=== PATIENT | male | born 1980 | race Caucasian/White ===

== ENCOUNTER 2021-07-03 23:50 | Inpatient (IN) | payer MEDICAID ==
[~2021-07-03] VITALS: Ht 180.3 cm; Wt 103.0 kg
[2021-07-04 00:49] LABS: BASOPHILS % (AUTO) 0.6 % (0.0-2.0); EOSINOPHILS % (AUTO) 1.9 % (1.0-6.0); HEMOGLOBIN 14.2 g/dL (13.5-17.5); LYMPHOCYTES % (AUTO) 28.1 % (22.0-44.0); MEAN CORPUSCULAR HEMOGLOBIN 29.5 pg (26.0-34.0); MEAN CORPUSCULAR HGB CONC 34.5 G/dL (31.0-37.0); MEAN CORPUSCULAR VOLUME 86 fL (80-100); MONOCYTES # (AUTO) 0.6 K/uL (0.1-1.0); MONOCYTES % (AUTO) 8.5 % (2.0-9.0); NEUTROPHILS # (AUTO) 4.3 K/uL (1.8-7.7); NEUTROPHILS % (AUTO) 60.9 % (40.0-70.0); PLATELET COUNT (AUTO) 211 K/uL (150-450); RED BLOOD CELL COUNT(AUTO) 4.79 MIL/uL (4.50-5.90); RED CELL DISTRIBUTION WIDTH 13.6 % (11.5-14.5)
[2021-07-04 00:57] LABS: ANION GAP 7 mmol/L (8-16); CALCIUM, TOTAL 8.7 mg/dL (8.8-10.5); CARBON DIOXIDE 31 mmol/L (22-29); CHLORIDE 104 mmol/L (98-107); CREATININE 1.09 mg/dL (0.60-1.30); GLOMERULAR FILTR. RATE CALC > 60 mL/min (>60); GLUCOSE,RANDOM 115 mg/dL (70-110); POTASSIUM 3.4 mmol/L (3.5-5.1); SODIUM SERUM 142 mmol/L (136-145); UREA NITROGEN, BLOOD 20 mg/dL (7-18)
[2021-07-04 01:04] LABS: ALANINE AMINOTRANSFERASE 60 U/L (12-78); ALBUMIN 3.6 g/dL (3.4-5.0); ALKALINE PHOSPHATASE 62 U/L (46-116); ASPARTATE AMINOTRANSFERASE 47 U/L (15-37); BILIRUBIN,TOTAL 0.3 mg/dL (0.1-1.0); TOTAL PROTEIN, SERUM 6.7 g/dL (6.4-8.2)
[2021-07-04 01:10] LABS: COVID AG,FIA SOURCE NASOPHARYNGEAL
[2021-07-04 01:19] LABS: AMPHET/METH SCREEN,URINE NEGATIVE (NEGATIVE); BARBITURATE SCREEN, URINE NEGATIVE (NEGATIVE); BENZODIAZEPINES SCREEN,URINE POSITIVE (NEGATIVE); CANNABINOID SCREEN,URINE POSITIVE (NEGATIVE); COCAINE SCREEN,URINE NEGATIVE (NEGATIVE); METHADONE SCREEN, URINE NEGATIVE (NEGATIVE); OPIATE SCREEN,URINE NEGATIVE (NEGATIVE); PHENCYCLIDINE SCREEN,URINE NEGATIVE (NEGATIVE)
[2021-07-04] MEDS ORDERED: ONDANSETRON HCL 4 MG/2 ML VIAL PO ONE (03:00)
[2021-07-04] MEDS ORDERED: ONDANSETRON HCL 4 MG TABLET PO ONE (03:00)
[2021-07-04] MEDS ORDERED: HALOPERIDOL 5 MG TABLET PO PRN (06:15)
[2021-07-04] MEDS ORDERED: LORazepam 2 MG TABLET PO PRN (06:15)
[2021-07-04] MEDS ORDERED: ZOLPIDEM TARTRATE 10 MG TABLET PO PRN (06:15)
[2021-07-04] MEDS ORDERED: NICOTINE 14 MG/24 HOUR PATCH TD PRN (06:45)
[2021-07-04] MEDS ORDERED: MAGNESIUM HYDROXIDE SUSPENSION 30 ML UDCUP PO PRN (06:45)
[2021-07-04] MEDS ORDERED: PETROLATUM,WHITE 28 GM JELLY TP PRN (06:45)
[2021-07-04] MEDS ORDERED: LOPERAMIDE HCL 2 MG CAPSULE PO PRN (06:45)
[2021-07-04] MEDS ORDERED: DOCUSATE SODIUM 100 MG CAPSULE PO PRN (06:45)
[2021-07-04] MEDS ORDERED: ALBUTEROL SULFATE HFA 90 MCG/PUFF 8 GM INHALER IH PRN (06:45)
[2021-07-04] MEDS ORDERED: IBUPROFEN 400 MG TABLET PO PRN (06:45)
[2021-07-04] MEDS ORDERED: MAG HYDROX/AL HYDROX/SIMETH ES 30 ML SUSPENSION UDCUP PO PRN (06:45)
[2021-07-04] MEDS ORDERED: GuaiFENesin/D-METHORPHAN [SUGAR-FREE] 200-20MG/10 ML SYRUP UDCUP PO PRN (06:45)
[2021-07-04] MEDS ORDERED: ACETAMINOPHEN 325 MG TABLET PO PRN (06:45)
[2021-07-04] MEDS ORDERED: CloNIDine HCL 0.1 MG TABLET PO PRN (06:45)
[2021-07-04 06:51] LABS: APPEARANCE,URINE CLEAR (CLEAR); BILIRUBIN,URINE NEGATIVE (NEGATIVE); GLUCOSE, URINE (UA) NEGATIVE (NEGATIVE); KETONES,URINE NEGATIVE (NEGATIVE); LEUKOCYTE ESTERASE ,URINE NEGATIVE (NEGATIVE); NITRATE,URINE NEGATIVE (NEGATIVE); OCCULT BLOOD,URINE NEGATIVE (NEGATIVE); PROTEIN,URINE NEGATIVE (NEGATIVE); UROBILINOGEN,URINE 0.2 mg/dL (<=1.0)
[2021-07-04] MEDS: ONDANSETRON HCL 4 MG TABLET PO PRN ×2 (12:18→20:55)
[2021-07-04 21:13] VITALS: BP 140/89
[2021-07-04] MEDS ORDERED: HALOPERIDOL LACTATE 5 MG/ML VIAL IM ONE (22:00)
[2021-07-04] MEDS ORDERED: TraZODone HCL 100 MG TABLET PO PRN (22:00)
[2021-07-04] MEDS ORDERED: DiphenhydrAMINE HCL 50 MG/ML VIAL IM ONE (22:00)
[2021-07-04] MEDS ORDERED: HydrOXYzine PAMOATE 50 MG CAPSULE PO PRN (22:00)
== END 2021-07-05 12:30 | disposition home or self-care (01) | DRG 751 ==
LOC: EMS 23:51 → 3EI 07-04 06:11
PROVIDERS: ADMIT Psychiatry & Neurology Child & Adolescent Psychiatry; ATTEND Psychiatry & Neurology Child & Adolescent Psychiatry
DX: F33.2 Major depressive disorder, recurrent severe without psychotic features (principal); F20.9 Schizophrenia, unspecified; Z20.822 Contact with and (suspected) exposure to COVID-19; Z91.19 Patient's noncompliance with other medical treatment and regimen
CPT/HCPCS: 80053; 81003; 85025; G0480; Q0162

== ENCOUNTER 2021-07-16 10:37 | Inpatient (IN) | payer MEDICAID, OTHER ==
[~2021-07-16] VITALS: Ht 180.3 cm; Wt 99.3 kg
[2021-07-16 11:30] LABS: BASOPHILS % (AUTO) 0.3 % (0.0-2.0); EOSINOPHILS % (AUTO) 2.1 % (1.0-6.0); HEMATOCRIT 43.4 % (41-53); HEMOGLOBIN 14.6 g/dL (13.5-17.5); LYMPHOCYTES # (AUTO) 0.9 K/uL (1.0-4.8); MEAN CORPUSCULAR HGB CONC 33.8 G/dL (31.0-37.0); MEAN CORPUSCULAR VOLUME 86 fL (80-100); MONOCYTES # (AUTO) 0.4 K/uL (0.1-1.0); NEUTROPHILS # (AUTO) 4.7 K/uL (1.8-7.7); NEUTROPHILS % (AUTO) 76.6 % (40.0-70.0); PLATELET COUNT (AUTO) 300 K/uL (150-450); RED BLOOD CELL COUNT(AUTO) 5.05 MIL/uL (4.50-5.90); RED CELL DISTRIBUTION WIDTH 13.4 % (11.5-14.5)
[2021-07-16 11:48] LABS: ANION GAP 6 mmol/L (8-16); CALCIUM, TOTAL 8.8 mg/dL (8.8-10.5); CARBON DIOXIDE 30 mmol/L (22-29); CHLORIDE 104 mmol/L (98-107); CREATININE 0.89 mg/dL (0.60-1.30); GLOMERULAR FILTR. RATE CALC > 60 mL/min (>60); GLUCOSE,RANDOM 132 mg/dL (70-110); POTASSIUM 3.9 mmol/L (3.5-5.1); SODIUM SERUM 140 mmol/L (136-145); UREA NITROGEN, BLOOD 14 mg/dL (7-18)
[2021-07-16 11:52] LABS: ALANINE AMINOTRANSFERASE 60 U/L (12-78); ALBUMIN 3.3 g/dL (3.4-5.0); ALKALINE PHOSPHATASE 68 U/L (46-116); ASPARTATE AMINOTRANSFERASE 61 U/L (15-37); BILIRUBIN,TOTAL 0.3 mg/dL (0.1-1.0); TOTAL PROTEIN, SERUM 6.9 g/dL (6.4-8.2)
[2021-07-16 14:15] LABS: AMPHET/METH SCREEN,URINE NEGATIVE (NEGATIVE); BARBITURATE SCREEN, URINE NEGATIVE (NEGATIVE); BENZODIAZEPINES SCREEN,URINE POSITIVE (NEGATIVE); CANNABINOID SCREEN,URINE POSITIVE (NEGATIVE); COCAINE SCREEN,URINE NEGATIVE (NEGATIVE); METHADONE SCREEN, URINE NEGATIVE (NEGATIVE); OPIATE SCREEN,URINE NEGATIVE (NEGATIVE)
[2021-07-16 14:19] LABS: PHENCYCLIDINE SCREEN,URINE NEGATIVE (NEGATIVE)
[2021-07-16 15:25] LABS: COVID AG,FIA SOURCE NASOPHARYNGEAL
[2021-07-16] MEDS ORDERED: ONDANSETRON HCL 4 MG TABLET PO ONE (19:30)
[2021-07-16] MEDS: LORazepam 2 MG TABLET PO PRN (20:31)
[2021-07-16] MEDS: HALOPERIDOL 5 MG TABLET PO PRN (20:39)
[2021-07-17] MEDS: LORazepam 2 MG TABLET PO PRN ×4 (06:08→20:13)
[2021-07-17] MEDS: HALOPERIDOL 5 MG TABLET PO PRN ×3 (06:08→15:55)
[2021-07-17] MEDS ORDERED: ACETAMINOPHEN 325 MG TABLET PO PRN (10:30)
[2021-07-17] MEDS ORDERED: ONDANSETRON HCL 4 MG TABLET PO PRN (10:30)
[2021-07-17] MEDS ORDERED: NICOTINE 14 MG/24 HOUR PATCH TD PRN (10:30)
[2021-07-17] MEDS ORDERED: MAG HYDROX/AL HYDROX/SIMETH ES 30 ML SUSPENSION UDCUP PO PRN (10:30)
[2021-07-17] MEDS ORDERED: CloNIDine HCL 0.1 MG TABLET PO PRN (10:30)
[2021-07-17] MEDS ORDERED: GuaiFENesin/D-METHORPHAN [SUGAR-FREE] 200-20MG/10 ML SYRUP UDCUP PO PRN (10:30)
[2021-07-17] MEDS ORDERED: DOCUSATE SODIUM 100 MG CAPSULE PO PRN (10:30)
[2021-07-17] MEDS ORDERED: MAGNESIUM HYDROXIDE SUSPENSION 30 ML UDCUP PO PRN (10:30)
[2021-07-17] MEDS ORDERED: PETROLATUM,WHITE 28 GM JELLY TP PRN (10:30)
[2021-07-17] MEDS ORDERED: ALBUTEROL SULFATE HFA 90 MCG/PUFF 8 GM INHALER IH PRN (10:30)
[2021-07-17] MEDS: IBUPROFEN 400 MG TABLET PO PRN (15:55)
[2021-07-17] MEDS: LOPERAMIDE HCL 2 MG CAPSULE PO PRN (15:55)
[2021-07-17] MEDS: ZOLPIDEM TARTRATE 10 MG TABLET PO PRN (20:14)
[2021-07-17] MEDS: NICOTINE POLACRILEX 2 MG LOZENGE PO PRN (22:37)
[2021-07-18] MEDS: LORazepam 2 MG TABLET PO PRN ×5 (00:09→21:26)
[2021-07-18] MEDS: HALOPERIDOL 5 MG TABLET PO PRN ×5 (00:09→21:26)
[2021-07-18] MEDS: LOPERAMIDE HCL 2 MG CAPSULE PO PRN ×2 (04:55→08:39)
[2021-07-18] MEDS: IBUPROFEN 400 MG TABLET PO PRN (04:55)
[2021-07-18] MEDS: NICOTINE POLACRILEX 2 MG LOZENGE PO PRN (08:57)
[2021-07-18 11:34] VITALS: BP 145/95
[2021-07-18] MEDS ORDERED: INFLUENZA VIRUS VACCINE QVS 2021-22 (6MO+)/PF 60 MCG/0.5 ML SYRINGE IM. ONE (13:15)
[2021-07-18 16:13] VITALS: BP 135/86
[2021-07-18] MEDS: ZOLPIDEM TARTRATE 10 MG TABLET PO PRN (20:42)
[2021-07-19 00:09] VITALS: BP 139/85
[2021-07-19] MEDS: NICOTINE POLACRILEX 2 MG LOZENGE PO PRN ×3 (01:44→21:04)
[2021-07-19 07:07] LABS: HEMOGLOBIN A1C 5.8 % (3.8-5.6)
[2021-07-19 07:23] LABS: FREE T4 (FREE THYROXINE) 0.82 ng/dL (0.76-1.46); THYROID STIMULATING HORMONE 1.62 uIU/mL (0.36-3.74)
[2021-07-19 08:12] VITALS: BP 126/85
[2021-07-19] MEDS: HALOPERIDOL 5 MG TABLET PO PRN (09:28)
[2021-07-19] MEDS: LORazepam 2 MG TABLET PO PRN ×3 (09:28→21:41)
[2021-07-19] MEDS ORDERED: LOPERAMIDE HCL 2 MG CAPSULE PO PRN (12:45)
[2021-07-19] MEDS: SERTRALINE HCL 50 MG TABLET PO SCH (13:04)
[2021-07-19] MEDS: ARIPiprazole 5 MG TABLET PO SCH (13:04)
[2021-07-19 17:45] VITALS: BP 131/90
[2021-07-19] MEDS: ZOLPIDEM TARTRATE 10 MG TABLET PO PRN (21:04)
[2021-07-19] MEDS ORDERED: MAG HYDROX/AL HYDROX/SIMETH ES 30 ML SUSPENSION UDCUP PO PRN (22:15)
[2021-07-19] MEDS ORDERED: HydrOXYzine PAMOATE 50 MG CAPSULE PO PRN (22:15)
[2021-07-19] MEDS ORDERED: CloNIDine HCL 0.1 MG TABLET PO PRN (22:15)
[2021-07-19] MEDS ORDERED: IBUPROFEN 600 MG TABLET PO PRN (22:15)
[2021-07-19 22:25] VITALS: BP 132/90
[2021-07-20] VITALS (13 sets, daily range): BP systolic 111–175; BP diastolic 66–118
[2021-07-20] MEDS: CloNIDine HCL 0.1 MG TABLET PO SCH ×4 (06:15→21:57)
[2021-07-20] MEDS: SERTRALINE HCL 50 MG TABLET PO SCH (09:10)
[2021-07-20] MEDS: ARIPiprazole 5 MG TABLET PO SCH (09:10)
[2021-07-20] MEDS: NICOTINE POLACRILEX 2 MG LOZENGE PO PRN ×2 (11:04→19:26)
[2021-07-20] MEDS: LORazepam 2 MG TABLET PO PRN ×2 (11:04→18:53)
[2021-07-21 00:19] VITALS: BP 131/78
[2021-07-21 01:15] VITALS: BP 131/79
[2021-07-21] MEDS: LORazepam 2 MG TABLET PO PRN ×2 (04:39→08:40)
[2021-07-21] MEDS: NICOTINE POLACRILEX 2 MG LOZENGE PO PRN (04:39)
[2021-07-21] MEDS: CloNIDine HCL 0.1 MG TABLET PO SCH (06:22)
[2021-07-21] MEDS ORDERED: CLOBETASOL 0.05% 25 ML SOLUTION TP PRN (08:15)
[2021-07-21 08:25] VITALS: BP 125/74
[2021-07-21] MEDS: SERTRALINE HCL 50 MG TABLET PO SCH (08:53)
[2021-07-21] MEDS: ARIPiprazole 5 MG TABLET PO SCH (08:53)
[2021-07-21] MEDS ORDERED: LORazepam 1 MG TABLET PO PRN (11:00)
== END 2021-07-21 11:10 | disposition left against medical advice (07) | DRG 754 ==
LOC: EMS 10:41 → B2S 07-18 09:09
PROVIDERS: ADMIT Psychiatry & Neurology Child & Adolescent Psychiatry; ATTEND Psychiatry & Neurology Child & Adolescent Psychiatry
DX: F32.9 Major depressive disorder, single episode, unspecified (principal); R45.851 Suicidal ideations; Z91.14 Patient's other noncompliance with medication regimen; E66.3 Overweight; F11.10 Opioid abuse, uncomplicated; Z20.822 Contact with and (suspected) exposure to COVID-19; F20.9 Schizophrenia, unspecified; G47.00 Insomnia, unspecified; Z59.00 Homelessness unspecified; F41.9 Anxiety disorder, unspecified; Z53.29 Procedure and treatment not carried out because of patient's decision for other reasons; F17.210 Nicotine dependence, cigarettes, uncomplicated; R73.9 Hyperglycemia, unspecified; F12.10 Cannabis abuse, uncomplicated; F13.10 Sedative, hypnotic or anxiolytic abuse, uncomplicated; Z91.51 Personal history of suicidal behavior; Z68.30 Body mass index [BMI] 30.0-30.9, adult; Z28.21 Immunization not carried out because of patient refusal
CPT/HCPCS: 80053; 83036; 84439; 84443; 85025; 99285; G0480; Q0162; Q9967

== ENCOUNTER 2021-07-28 13:37 | Emergency (ER) | payer MEDICAID, OTHER ==
[~2021-07-28] VITALS: Ht 180.3 cm; Wt 100.0 kg
[2021-07-28 14:24] VITALS: BP 123/78
== END 2021-07-28 15:44 | disposition home or self-care (01) ==
LOC: EMS 13:37
DX: F19.10 Other psychoactive substance abuse, uncomplicated (principal); F12.90 Cannabis use, unspecified, uncomplicated
CPT/HCPCS: 99285

== ENCOUNTER 2021-08-01 07:27 | Inpatient (IN) | payer MEDICAID, OTHER ==
[~2021-08-01] VITALS: Ht 180.3 cm; Wt 100.0 kg
[2021-08-01] MEDS ORDERED: ONDANSETRON HCL 4 MG TABLET PO ONE (08:00)
[2021-08-01 08:06] LABS: BASOPHILS % (AUTO) 0.4 % (0.0-2.0); EOSINOPHILS % (AUTO) 1.9 % (1.0-6.0); HEMATOCRIT 46.9 % (41-53); HEMOGLOBIN 16.1 g/dL (13.5-17.5); LYMPHOCYTES # (AUTO) 1.1 K/uL (1.0-4.8); LYMPHOCYTES % (AUTO) 12.9 % (22.0-44.0); MEAN CORPUSCULAR HEMOGLOBIN 29.5 pg (26.0-34.0); MEAN CORPUSCULAR HGB CONC 34.3 G/dL (31.0-37.0); MEAN CORPUSCULAR VOLUME 86 fL (80-100); MONOCYTES # (AUTO) 0.5 K/uL (0.1-1.0); MONOCYTES % (AUTO) 5.6 % (2.0-9.0); NEUTROPHILS # (AUTO) 6.9 K/uL (1.8-7.7); NEUTROPHILS % (AUTO) 79.2 % (40.0-70.0); PLATELET COUNT (AUTO) 250 K/uL (150-450); RED BLOOD CELL COUNT(AUTO) 5.45 MIL/uL (4.50-5.90); RED CELL DISTRIBUTION WIDTH 13.5 % (11.5-14.5)
[2021-08-01 08:18] LABS: COVID AG,FIA SOURCE NASOPHARYNGEAL
[2021-08-01 08:30] LABS: AMPHET/METH SCREEN,URINE NEGATIVE (NEGATIVE); BARBITURATE SCREEN, URINE NEGATIVE (NEGATIVE); BENZODIAZEPINES SCREEN,URINE POSITIVE (NEGATIVE); CANNABINOID SCREEN,URINE POSITIVE (NEGATIVE); COCAINE SCREEN,URINE NEGATIVE (NEGATIVE); METHADONE SCREEN, URINE NEGATIVE (NEGATIVE); OPIATE SCREEN,URINE POSITIVE (NEGATIVE)
[2021-08-01 08:30] LABS: ANION GAP 12 mmol/L (8-16); CALCIUM, TOTAL 8.8 mg/dL (8.8-10.5); CARBON DIOXIDE 23 mmol/L (22-29); CHLORIDE 107 mmol/L (98-107); GLOMERULAR FILTR. RATE CALC > 60 mL/min (>60); GLUCOSE,RANDOM 99 mg/dL (70-110); POTASSIUM 3.7 mmol/L (3.5-5.1); SODIUM SERUM 142 mmol/L (136-145); UREA NITROGEN, BLOOD 11 mg/dL (7-18)
[2021-08-01 08:33] LABS: PHENCYCLIDINE SCREEN,URINE NEGATIVE (NEGATIVE)
[2021-08-01 08:35] LABS: ALANINE AMINOTRANSFERASE 58 U/L (12-78); ALBUMIN 3.9 g/dL (3.4-5.0); ALKALINE PHOSPHATASE 72 U/L (46-116); ASPARTATE AMINOTRANSFERASE 32 U/L (15-37); BILIRUBIN,TOTAL 0.5 mg/dL (0.1-1.0); TOTAL PROTEIN, SERUM 7.9 g/dL (6.4-8.2)
[2021-08-01] MEDS ORDERED: MAG HYDROX/AL HYDROX/SIMETH ES 30 ML SUSPENSION UDCUP PO PRN (09:45)
[2021-08-01] MEDS ORDERED: LORazepam 2 MG TABLET PO PRN (09:45)
[2021-08-01] MEDS ORDERED: MAGNESIUM HYDROXIDE SUSPENSION 30 ML UDCUP PO PRN (09:45)
[2021-08-01] MEDS ORDERED: GuaiFENesin/D-METHORPHAN [SUGAR-FREE] 200-20MG/10 ML SYRUP UDCUP PO PRN (09:45)
[2021-08-01] MEDS: OLANZapine 5 MG RAPDIS TABLET PO PRN ×2 (11:00→15:50)
[2021-08-01] MEDS: HydrOXYzine PAMOATE 50 MG CAPSULE PO PRN ×2 (11:00→15:49)
[2021-08-01] MEDS ORDERED: CYANOCOBALAMIN 1,000 MCG/ML VIAL IM ONE (11:30)
[2021-08-01] MEDS: LOPERAMIDE HCL 2 MG CAPSULE PO PRN ×3 (11:35→21:19)
[2021-08-01] MEDS: ONDANSETRON HCL 4 MG TABLET PO ONE ×2 (13:21→15:45)
[2021-08-01] MEDS: ACETAMINOPHEN 325 MG TABLET PO PRN (15:45)
[2021-08-01] MEDS: THIAMINE 100 MG TABLET PO SCH (18:55)
[2021-08-01] MEDS: OLANZapine 5 MG RAPDIS TABLET PO SCH (21:19)
[2021-08-01] MEDS: ZOLPIDEM TARTRATE 10 MG TABLET PO PRN (21:54)
[2021-08-01] MEDS: GABAPENTIN 300 MG CAPSULE PO PRN (21:54)
[2021-08-01] MEDS: MELATONIN 5 MG TABLET PO SCH (21:59)
[2021-08-02] MEDS: HydrOXYzine PAMOATE 50 MG CAPSULE PO PRN ×2 (00:11→21:17)
[2021-08-02] MEDS ORDERED: HALOPERIDOL 5 MG TABLET PO ONE (02:00)
[2021-08-02] MEDS ORDERED: DiphenhydrAMINE HCL 25 MG CAPSULE PO ONE (02:00)
[2021-08-02] MEDS ORDERED: LORazepam 1 MG TABLET PO ONE (02:00)
[2021-08-02] MEDS: ACETAMINOPHEN 325 MG TABLET PO PRN (06:24)
[2021-08-02 07:37] LABS: HEMOGLOBIN A1C 5.6 % (3.8-5.6)
[2021-08-02 07:44] LABS: CHOL/HDL RATIO 3.9 (4.2-7.3); CHOLESTEROL 156 mg/dL (131-200); FREE T4 (FREE THYROXINE) 0.96 ng/dL (0.76-1.46); HDL CHOLESTEROL 40 mg/dL (40-60); LDL CHOL (CALC.) 103 mg/dL (0-130); THYROID STIMULATING HORMONE 0.75 uIU/mL (0.36-3.74); TRIGLYCERIDES 64 mg/dL (15-150)
[2021-08-02] MEDS ORDERED: PALIPERIDONE PALMITATE 234 MG/1.5 ML SYRINGE IM ONE (09:00)
[2021-08-02] MEDS: MULTIVITAMINS WITH MINERALS, THERAPEUTIC TABLET PO SCH (10:08)
[2021-08-02] MEDS: FLUoxetine HCL 20 MG CAPSULE PO SCH (10:08)
[2021-08-02] MEDS: THIAMINE 100 MG TABLET PO SCH ×2 (10:08→17:26)
[2021-08-02] MEDS: NALTREXONE HCL 50 MG TABLET PO SCH (10:09)
[2021-08-02] MEDS: OMEGA-3/DHA/EPA/FISH OIL 1,000 MG CAPSULE PO SCH (10:09)
[2021-08-02] MEDS: FOLIC ACID 1 MG TABLET PO SCH (10:09)
[2021-08-02] MEDS: OLANZapine 5 MG RAPDIS TABLET PO PRN ×2 (11:05→17:26)
[2021-08-02] MEDS: LOPERAMIDE HCL 2 MG CAPSULE PO PRN (11:06)
[2021-08-02] MEDS: ONDANSETRON HCL 4 MG TABLET PO PRN ×2 (11:22→21:17)
[2021-08-02] MEDS ORDERED: LORazepam 2 MG TABLET PO ONE (12:00)
[2021-08-02 15:00] VITALS: BP 154/94
[2021-08-02 16:00] VITALS: BP 155/90
[2021-08-02] MEDS ORDERED: NICOTINE 21 MG/24 HOUR PATCH TD PRN (18:00)
[2021-08-02] MEDS ORDERED: CloNIDine HCL 0.1 MG TABLET PO SCH (18:00)
[2021-08-02 19:11] VITALS: BP 147/89
[2021-08-02] MEDS ORDERED: CloNIDine HCL 0.1 MG TABLET PO PRN (19:15)
[2021-08-02] MEDS ORDERED: MAG HYDROX/AL HYDROX/SIMETH ES 30 ML SUSPENSION UDCUP PO PRN (19:15)
[2021-08-02] MEDS ORDERED: CloNIDine HCL 0.1 MG TABLET PO ONE (19:15)
[2021-08-02 20:11] VITALS: BP 145/86
[2021-08-02 21:11] VITALS: BP 131/77
[2021-08-02] MEDS: OLANZapine 5 MG RAPDIS TABLET PO SCH (21:16)
[2021-08-02] MEDS: MELATONIN 5 MG TABLET PO SCH (21:16)
[2021-08-02] MEDS: CloNIDine HCL 0.1 MG TABLET PO SCH (21:17)
[2021-08-02 21:18] VITALS: BP 139/88
[2021-08-02] MEDS: IBUPROFEN 600 MG TABLET PO PRN (21:18)
[2021-08-02] MEDS ORDERED: ROPINIRole HCL 1 MG TABLET PO ONE (21:45)
[2021-08-02] MEDS ORDERED: PROPRANOLOL HCL 10 MG TABLET PO ONE (22:00)
[2021-08-02] MEDS: NICOTINE POLACRILEX 2 MG LOZENGE PO PRN (22:09)
[2021-08-03] MEDS: ZOLPIDEM TARTRATE 10 MG TABLET PO PRN (00:41)
[2021-08-03 06:59] VITALS: BP 120/70
[2021-08-03] MEDS: CloNIDine HCL 0.1 MG TABLET PO SCH ×5 (06:59→20:53)
[2021-08-03] MEDS: FOLIC ACID 1 MG TABLET PO SCH (08:05)
[2021-08-03] MEDS: OMEGA-3/DHA/EPA/FISH OIL 1,000 MG CAPSULE PO SCH (08:05)
[2021-08-03] MEDS: MULTIVITAMINS WITH MINERALS, THERAPEUTIC TABLET PO SCH (08:05)
[2021-08-03] MEDS: NALTREXONE HCL 50 MG TABLET PO SCH (08:05)
[2021-08-03] MEDS: FLUoxetine HCL 20 MG CAPSULE PO SCH (08:05)
[2021-08-03] MEDS: PROPRANOLOL HCL 10 MG TABLET PO SCH ×5 (08:05→21:00)
[2021-08-03] MEDS: THIAMINE 100 MG TABLET PO SCH ×2 (08:05→17:13)
[2021-08-03] MEDS: NICOTINE POLACRILEX 2 MG LOZENGE PO PRN ×2 (09:15→14:34)
[2021-08-03] MEDS: GABAPENTIN 300 MG CAPSULE PO PRN ×2 (09:15→14:56)
[2021-08-03] MEDS: LOPERAMIDE HCL 2 MG CAPSULE PO PRN (09:15)
[2021-08-03] MEDS: HydrOXYzine PAMOATE 50 MG CAPSULE PO PRN ×2 (09:19→14:56)
[2021-08-03] MEDS: IBUPROFEN 600 MG TABLET PO PRN (14:57)
[2021-08-03] MEDS: OLANZapine 5 MG RAPDIS TABLET PO PRN ×2 (14:57→20:54)
[2021-08-03 16:59] VITALS: BP 149/78
[2021-08-03] MEDS: ROPINIRole HCL 1 MG TABLET PO SCH (17:13)
[2021-08-03] MEDS: MELATONIN 5 MG TABLET PO SCH (20:53)
[2021-08-04] VITALS (7 sets, daily range): BP systolic 104–137; BP diastolic 68–90
[2021-08-04] MEDS: OLANZapine 5 MG RAPDIS TABLET PO PRN (04:26)
[2021-08-04] MEDS: GABAPENTIN 300 MG CAPSULE PO PRN (04:26)
[2021-08-04] MEDS: ACETAMINOPHEN 325 MG TABLET PO PRN (04:26)
[2021-08-04] MEDS: CloNIDine HCL 0.1 MG TABLET PO SCH ×4 (06:53→21:08)
[2021-08-04] MEDS ORDERED: LOPERAMIDE HCL 2 MG CAPSULE PO PRN (09:45)
[2021-08-04] MEDS: OMEGA-3/DHA/EPA/FISH OIL 1,000 MG CAPSULE PO SCH (10:48)
[2021-08-04] MEDS: PROPRANOLOL HCL 10 MG TABLET PO SCH ×4 (10:48→20:19)
[2021-08-04] MEDS: MULTIVITAMINS WITH MINERALS, THERAPEUTIC TABLET PO SCH (10:48)
[2021-08-04] MEDS: NALTREXONE HCL 50 MG TABLET PO SCH (10:48)
[2021-08-04] MEDS: FOLIC ACID 1 MG TABLET PO SCH (10:48)
[2021-08-04] MEDS: THIAMINE 100 MG TABLET PO SCH ×2 (10:48→16:02)
[2021-08-04] MEDS: FLUoxetine HCL 20 MG CAPSULE PO SCH (10:50)
[2021-08-04] MEDS: NICOTINE POLACRILEX 2 MG LOZENGE PO PRN (14:12)
[2021-08-04] MEDS: ONDANSETRON HCL 4 MG TABLET PO PRN (16:24)
[2021-08-04] MEDS: MELATONIN 5 MG TABLET PO SCH (20:19)
[2021-08-04] MEDS: ROPINIRole HCL 1 MG TABLET PO SCH (20:20)
[2021-08-04] MEDS: ZOLPIDEM TARTRATE 10 MG TABLET PO PRN (20:21)
[2021-08-05] MEDS: NICOTINE POLACRILEX 2 MG LOZENGE PO PRN ×3 (04:18→18:43)
[2021-08-05 06:13] VITALS: BP 121/76
[2021-08-05] MEDS: CloNIDine HCL 0.1 MG TABLET PO SCH ×4 (06:13→21:16)
[2021-08-05] MEDS: FOLIC ACID 1 MG TABLET PO SCH (08:01)
[2021-08-05] MEDS: OMEGA-3/DHA/EPA/FISH OIL 1,000 MG CAPSULE PO SCH (08:01)
[2021-08-05] MEDS: MULTIVITAMINS WITH MINERALS, THERAPEUTIC TABLET PO SCH (08:01)
[2021-08-05] MEDS: PROPRANOLOL HCL 10 MG TABLET PO SCH ×4 (08:02→20:10)
[2021-08-05] MEDS: FLUoxetine HCL 20 MG CAPSULE PO SCH (08:02)
[2021-08-05] MEDS: NALTREXONE HCL 50 MG TABLET PO SCH (08:02)
[2021-08-05] MEDS: THIAMINE 100 MG TABLET PO SCH ×2 (08:02→16:12)
[2021-08-05 08:25] VITALS: BP 124/76
[2021-08-05] MEDS: HydrOXYzine PAMOATE 50 MG CAPSULE PO PRN (08:53)
[2021-08-05] MEDS: OLANZapine 5 MG RAPDIS TABLET PO PRN ×2 (08:53→18:42)
[2021-08-05 16:00] VITALS: BP 137/77
[2021-08-05 16:41] VITALS: BP 137/77
[2021-08-05 16:43] VITALS: BP 137/77
[2021-08-05] MEDS: GABAPENTIN 300 MG CAPSULE PO PRN (18:42)
[2021-08-05] MEDS: MELATONIN 5 MG TABLET PO SCH (20:10)
[2021-08-05] MEDS: ROPINIRole HCL 1 MG TABLET PO SCH (20:10)
[2021-08-05] MEDS: ZOLPIDEM TARTRATE 10 MG TABLET PO PRN (21:32)
[2021-08-06 06:00] VITALS: BP 109/69
[2021-08-06] MEDS: CloNIDine HCL 0.1 MG TABLET PO SCH ×4 (06:05→20:24)
[2021-08-06 08:00] VITALS: BP 127/69
[2021-08-06 08:06] LABS: HIV 1-2 SCREEN 4TH GEN W/RFLX Non Reactive (Non Reactive)
[2021-08-06] MEDS: OMEGA-3/DHA/EPA/FISH OIL 1,000 MG CAPSULE PO SCH (08:24)
[2021-08-06] MEDS: FOLIC ACID 1 MG TABLET PO SCH (08:25)
[2021-08-06] MEDS: NALTREXONE HCL 50 MG TABLET PO SCH (08:25)
[2021-08-06] MEDS: FLUoxetine HCL 20 MG CAPSULE PO SCH (08:25)
[2021-08-06] MEDS: PROPRANOLOL HCL 10 MG TABLET PO SCH ×4 (08:25→20:24)
[2021-08-06] MEDS: THIAMINE 100 MG TABLET PO SCH ×2 (08:25→16:38)
[2021-08-06] MEDS: MULTIVITAMINS WITH MINERALS, THERAPEUTIC TABLET PO SCH (08:25)
[2021-08-06] MEDS ORDERED: PALIPERIDONE PALMITATE 156 MG/ML SYRINGE IM ONE (09:00)
[2021-08-06] MEDS: NICOTINE POLACRILEX 2 MG LOZENGE PO PRN ×3 (09:30→19:00)
[2021-08-06 16:25] VITALS: BP 103/65
[2021-08-06 16:33] VITALS: BP 103/65
[2021-08-06] MEDS: OLANZapine 5 MG RAPDIS TABLET PO PRN (18:58)
[2021-08-06] MEDS: HydrOXYzine PAMOATE 50 MG CAPSULE PO PRN (18:59)
[2021-08-06] MEDS: MELATONIN 5 MG TABLET PO SCH (20:24)
[2021-08-06] MEDS: ROPINIRole HCL 1 MG TABLET PO SCH (20:24)
[2021-08-06] MEDS: ZOLPIDEM TARTRATE 10 MG TABLET PO PRN (21:02)
[2021-08-07] MEDS: NICOTINE POLACRILEX 2 MG LOZENGE PO PRN ×2 (06:30→16:50)
[2021-08-07 06:45] VITALS: BP 138/88
[2021-08-07] MEDS: CloNIDine HCL 0.1 MG TABLET PO SCH ×4 (06:46→22:09)
[2021-08-07] MEDS: MULTIVITAMINS WITH MINERALS, THERAPEUTIC TABLET PO SCH (08:16)
[2021-08-07] MEDS: NALTREXONE HCL 50 MG TABLET PO SCH (08:17)
[2021-08-07] MEDS: OMEGA-3/DHA/EPA/FISH OIL 1,000 MG CAPSULE PO SCH (08:17)
[2021-08-07] MEDS: PROPRANOLOL HCL 10 MG TABLET PO SCH ×4 (08:18→20:15)
[2021-08-07] MEDS: FOLIC ACID 1 MG TABLET PO SCH (08:18)
[2021-08-07] MEDS: FLUoxetine HCL 20 MG CAPSULE PO SCH (08:18)
[2021-08-07] MEDS: THIAMINE 100 MG TABLET PO SCH ×2 (08:18→16:50)
[2021-08-07 08:39] VITALS: BP 124/75
[2021-08-07 08:46] VITALS: BP 124/75
[2021-08-07 11:20] LABS: COVID AG,FIA SOURCE NASOPHARYNGEAL
[2021-08-07 12:12] VITALS: BP 118/68
[2021-08-07 16:36] VITALS: BP 118/78
[2021-08-07 16:45] VITALS: BP 118/78
[2021-08-07] MEDS: ROPINIRole HCL 1 MG TABLET PO SCH (20:12)
[2021-08-07] MEDS: HydrOXYzine PAMOATE 50 MG CAPSULE PO PRN (20:14)
[2021-08-07] MEDS: OLANZapine 5 MG RAPDIS TABLET PO PRN (20:14)
[2021-08-07] MEDS: MELATONIN 5 MG TABLET PO SCH (20:15)
[2021-08-08 06:11] VITALS: BP 124/69
[2021-08-08] MEDS: CloNIDine HCL 0.1 MG TABLET PO SCH ×4 (06:17→20:20)
[2021-08-08] MEDS: NICOTINE POLACRILEX 2 MG LOZENGE PO PRN ×2 (06:45→10:41)
[2021-08-08 08:12] VITALS: BP 123/88
[2021-08-08] MEDS: FLUoxetine HCL 20 MG CAPSULE PO SCH (08:40)
[2021-08-08] MEDS: OMEGA-3/DHA/EPA/FISH OIL 1,000 MG CAPSULE PO SCH (08:40)
[2021-08-08] MEDS: MULTIVITAMINS WITH MINERALS, THERAPEUTIC TABLET PO SCH (08:40)
[2021-08-08] MEDS: NALTREXONE HCL 50 MG TABLET PO SCH (08:40)
[2021-08-08] MEDS: THIAMINE 100 MG TABLET PO SCH ×2 (08:41→16:41)
[2021-08-08] MEDS: FOLIC ACID 1 MG TABLET PO SCH (08:41)
[2021-08-08] MEDS: PROPRANOLOL HCL 10 MG TABLET PO SCH ×4 (08:41→20:19)
[2021-08-08] MEDS: OLANZapine 5 MG RAPDIS TABLET PO PRN ×3 (13:52→17:00)
[2021-08-08] MEDS: HydrOXYzine PAMOATE 50 MG CAPSULE PO PRN ×3 (13:53→20:19)
[2021-08-08 16:49] VITALS: BP 114/76
[2021-08-08 18:48] VITALS: BP 114/76
[2021-08-08] MEDS: ROPINIRole HCL 1 MG TABLET PO SCH (20:19)
[2021-08-08] MEDS: MELATONIN 5 MG TABLET PO SCH (20:19)
[2021-08-08] MEDS: ZOLPIDEM TARTRATE 10 MG TABLET PO PRN (20:19)
[2021-08-09] MEDS: CloNIDine HCL 0.1 MG TABLET PO SCH ×4 (06:16→21:09)
[2021-08-09 06:17] VITALS: BP 114/76
[2021-08-09] MEDS ORDERED: ARIPiprazole ER SUSPENSION 400 MG PRE-FILLED DUAL CHAMBER SYRINGE IM ONE (09:00)
[2021-08-09] MEDS: NALTREXONE HCL 50 MG TABLET PO SCH (10:43)
[2021-08-09] MEDS: FLUoxetine HCL 20 MG CAPSULE PO SCH (10:43)
[2021-08-09] MEDS: MULTIVITAMINS WITH MINERALS, THERAPEUTIC TABLET PO SCH (10:43)
[2021-08-09] MEDS: THIAMINE 100 MG TABLET PO SCH ×2 (10:44→16:50)
[2021-08-09] MEDS: FOLIC ACID 1 MG TABLET PO SCH (10:44)
[2021-08-09] MEDS: OMEGA-3/DHA/EPA/FISH OIL 1,000 MG CAPSULE PO SCH (10:44)
[2021-08-09] MEDS: PROPRANOLOL HCL 10 MG TABLET PO SCH ×4 (10:44→21:10)
[2021-08-09] MEDS: ARIPiprazole 15 MG TABLET PO SCH (10:51)
[2021-08-09 10:56] VITALS: BP 117/79
[2021-08-09] MEDS: NICOTINE POLACRILEX 2 MG LOZENGE PO PRN (12:48)
[2021-08-09 16:14] VITALS: BP 122/76
[2021-08-09] MEDS: MELATONIN 5 MG TABLET PO SCH (21:08)
[2021-08-09] MEDS: ROPINIRole HCL 1 MG TABLET PO SCH (21:09)
[2021-08-10 06:26] VITALS: BP 173/71
[2021-08-10] MEDS: CloNIDine HCL 0.1 MG TABLET PO SCH ×4 (06:26→20:30)
[2021-08-10 08:59] VITALS: BP 104/63
[2021-08-10] MEDS: NALTREXONE HCL 50 MG TABLET PO SCH (09:10)
[2021-08-10] MEDS: HydrOXYzine PAMOATE 50 MG CAPSULE PO PRN ×2 (09:11→20:30)
[2021-08-10] MEDS: FOLIC ACID 1 MG TABLET PO SCH (09:11)
[2021-08-10] MEDS: THIAMINE 100 MG TABLET PO SCH ×2 (09:11→17:00)
[2021-08-10] MEDS: OLANZapine 5 MG RAPDIS TABLET PO PRN ×2 (09:11→16:58)
[2021-08-10] MEDS: NICOTINE POLACRILEX 2 MG LOZENGE PO PRN (09:11)
[2021-08-10] MEDS: PROPRANOLOL HCL 10 MG TABLET PO SCH ×4 (09:11→20:33)
[2021-08-10] MEDS: ARIPiprazole 15 MG TABLET PO SCH (09:11)
[2021-08-10] MEDS: OMEGA-3/DHA/EPA/FISH OIL 1,000 MG CAPSULE PO SCH (09:11)
[2021-08-10] MEDS: MULTIVITAMINS WITH MINERALS, THERAPEUTIC TABLET PO SCH (09:11)
[2021-08-10] MEDS: FLUoxetine HCL 20 MG CAPSULE PO SCH (09:11)
[2021-08-10 16:55] VITALS: BP 119/75
[2021-08-10] MEDS: ROPINIRole HCL 1 MG TABLET PO SCH (20:30)
[2021-08-10] MEDS: MELATONIN 5 MG TABLET PO SCH (20:30)
[2021-08-11] MEDS: CloNIDine HCL 0.1 MG TABLET PO SCH ×4 (06:00→20:48)
[2021-08-11 08:00] VITALS: BP 133/96
[2021-08-11] MEDS: MULTIVITAMINS WITH MINERALS, THERAPEUTIC TABLET PO SCH (08:43)
[2021-08-11] MEDS: FOLIC ACID 1 MG TABLET PO SCH (08:43)
[2021-08-11] MEDS: THIAMINE 100 MG TABLET PO SCH (08:43)
[2021-08-11] MEDS: ARIPiprazole 15 MG TABLET PO SCH (08:43)
[2021-08-11] MEDS: NALTREXONE HCL 50 MG TABLET PO SCH (08:43)
[2021-08-11] MEDS: PROPRANOLOL HCL 10 MG TABLET PO SCH ×4 (08:43→20:47)
[2021-08-11] MEDS: FLUoxetine HCL 20 MG CAPSULE PO SCH (08:43)
[2021-08-11] MEDS: OMEGA-3/DHA/EPA/FISH OIL 1,000 MG CAPSULE PO SCH (08:43)
[2021-08-11] MEDS: OLANZapine 5 MG RAPDIS TABLET PO PRN ×2 (09:01→16:34)
[2021-08-11] MEDS: HydrOXYzine PAMOATE 50 MG CAPSULE PO PRN ×2 (09:01→20:47)
[2021-08-11] MEDS: NICOTINE POLACRILEX 2 MG LOZENGE PO PRN ×2 (09:02→14:19)
[2021-08-11 16:21] VITALS: BP 136/83
[2021-08-11] MEDS: ROPINIRole HCL 1 MG TABLET PO SCH (20:47)
[2021-08-11] MEDS: MELATONIN 5 MG TABLET PO SCH (20:48)
[2021-08-12] MEDS: CloNIDine HCL 0.1 MG TABLET PO SCH ×4 (06:00→20:28)
[2021-08-12 08:00] VITALS: BP 144/93
[2021-08-12] MEDS: NICOTINE POLACRILEX 2 MG LOZENGE PO PRN ×3 (08:12→14:59)
[2021-08-12] MEDS: ARIPiprazole 15 MG TABLET PO SCH (08:12)
[2021-08-12] MEDS: FLUoxetine HCL 20 MG CAPSULE PO SCH (08:12)
[2021-08-12] MEDS: MULTIVITAMINS WITH MINERALS, THERAPEUTIC TABLET PO SCH (08:12)
[2021-08-12] MEDS: PROPRANOLOL HCL 10 MG TABLET PO SCH ×4 (08:13→20:28)
[2021-08-12] MEDS: NALTREXONE HCL 50 MG TABLET PO SCH (08:13)
[2021-08-12] MEDS: OMEGA-3/DHA/EPA/FISH OIL 1,000 MG CAPSULE PO SCH (08:13)
[2021-08-12 16:46] VITALS: BP 138/98
[2021-08-12] MEDS: ROPINIRole HCL 1 MG TABLET PO SCH (20:28)
[2021-08-12] MEDS: MELATONIN 5 MG TABLET PO SCH (20:28)
[2021-08-13] MEDS: CloNIDine HCL 0.1 MG TABLET PO SCH ×4 (06:00→20:39)
[2021-08-13 08:19] VITALS: BP 116/74
[2021-08-13] MEDS: ARIPiprazole 15 MG TABLET PO SCH (08:31)
[2021-08-13] MEDS: FLUoxetine HCL 20 MG CAPSULE PO SCH (08:32)
[2021-08-13] MEDS: NALTREXONE HCL 50 MG TABLET PO SCH (08:32)
[2021-08-13] MEDS: MULTIVITAMINS WITH MINERALS, THERAPEUTIC TABLET PO SCH (08:32)
[2021-08-13] MEDS: OMEGA-3/DHA/EPA/FISH OIL 1,000 MG CAPSULE PO SCH (08:32)
[2021-08-13] MEDS: PROPRANOLOL HCL 10 MG TABLET PO SCH ×4 (08:32→20:39)
[2021-08-13] MEDS: NICOTINE POLACRILEX 2 MG LOZENGE PO PRN ×3 (08:45→16:24)
[2021-08-13] MEDS: HydrOXYzine PAMOATE 50 MG CAPSULE PO PRN (14:08)
[2021-08-13] MEDS: OLANZapine 5 MG RAPDIS TABLET PO PRN (14:08)
[2021-08-13 16:00] VITALS: BP 129/85
[2021-08-13] MEDS: MELATONIN 5 MG TABLET PO SCH (20:38)
[2021-08-13] MEDS: ROPINIRole HCL 1 MG TABLET PO SCH (20:39)
[2021-08-14] MEDS: CloNIDine HCL 0.1 MG TABLET PO SCH ×4 (06:00→21:27)
[2021-08-14] MEDS: OLANZapine 5 MG RAPDIS TABLET PO PRN (07:56)
[2021-08-14] MEDS: HydrOXYzine PAMOATE 50 MG CAPSULE PO PRN (07:56)
[2021-08-14] MEDS: NICOTINE POLACRILEX 2 MG LOZENGE PO PRN (07:57)
[2021-08-14] MEDS: PROPRANOLOL HCL 10 MG TABLET PO SCH ×4 (07:58→20:11)
[2021-08-14] MEDS: ARIPiprazole 15 MG TABLET PO SCH (07:59)
[2021-08-14] MEDS: MULTIVITAMINS WITH MINERALS, THERAPEUTIC TABLET PO SCH (07:59)
[2021-08-14] MEDS: FLUoxetine HCL 20 MG CAPSULE PO SCH (07:59)
[2021-08-14] MEDS: OMEGA-3/DHA/EPA/FISH OIL 1,000 MG CAPSULE PO SCH (07:59)
[2021-08-14] MEDS: NALTREXONE HCL 50 MG TABLET PO SCH (07:59)
[2021-08-14 08:44] VITALS: BP 135/87
[2021-08-14 11:40] VITALS: BP 109/71
[2021-08-14 12:58] LABS: COVID AG,FIA SOURCE NASOPHARYNGEAL
[2021-08-14 16:00] VITALS: BP 154/90
[2021-08-14] MEDS: ROPINIRole HCL 1 MG TABLET PO SCH (20:11)
[2021-08-14] MEDS: MELATONIN 5 MG TABLET PO SCH (20:11)
[2021-08-15] MEDS: CloNIDine HCL 0.1 MG TABLET PO SCH ×2 (06:00→13:39)
[2021-08-15 09:28] VITALS: BP 138/91
[2021-08-15] MEDS: FLUoxetine HCL 20 MG CAPSULE PO SCH (10:11)
[2021-08-15] MEDS: MULTIVITAMINS WITH MINERALS, THERAPEUTIC TABLET PO SCH (10:11)
[2021-08-15] MEDS: NALTREXONE HCL 50 MG TABLET PO SCH (10:11)
[2021-08-15] MEDS: ARIPiprazole 15 MG TABLET PO SCH (10:11)
[2021-08-15] MEDS: PROPRANOLOL HCL 10 MG TABLET PO SCH ×4 (10:11→21:28)
[2021-08-15] MEDS: OMEGA-3/DHA/EPA/FISH OIL 1,000 MG CAPSULE PO SCH (10:11)
[2021-08-15] MEDS: HydrOXYzine PAMOATE 50 MG CAPSULE PO PRN (10:20)
[2021-08-15] MEDS: NICOTINE POLACRILEX 2 MG LOZENGE PO PRN (10:20)
[2021-08-15] MEDS: OLANZapine 5 MG RAPDIS TABLET PO PRN (10:20)
[2021-08-15 16:00] VITALS: BP 134/86
[2021-08-15] MEDS: MELATONIN 5 MG TABLET PO SCH (21:28)
[2021-08-15] MEDS: ROPINIRole HCL 1 MG TABLET PO SCH (21:28)
[2021-08-15] MEDS: ZOLPIDEM TARTRATE 10 MG TABLET PO PRN (21:59)
[2021-08-16 08:48] VITALS: BP 108/68
[2021-08-16] MEDS: MULTIVITAMINS WITH MINERALS, THERAPEUTIC TABLET PO SCH (09:14)
[2021-08-16] MEDS: OMEGA-3/DHA/EPA/FISH OIL 1,000 MG CAPSULE PO SCH (09:14)
[2021-08-16] MEDS: PROPRANOLOL HCL 10 MG TABLET PO SCH ×4 (09:14→20:59)
[2021-08-16] MEDS: ARIPiprazole 15 MG TABLET PO SCH (09:15)
[2021-08-16] MEDS: FLUoxetine HCL 20 MG CAPSULE PO SCH (09:15)
[2021-08-16] MEDS: NALTREXONE HCL 50 MG TABLET PO SCH (09:15)
[2021-08-16] MEDS: HydrOXYzine PAMOATE 50 MG CAPSULE PO PRN (11:58)
[2021-08-16] MEDS: NICOTINE POLACRILEX 2 MG LOZENGE PO PRN (11:59)
[2021-08-16] MEDS: OLANZapine 5 MG RAPDIS TABLET PO PRN ×2 (11:59→17:17)
[2021-08-16 16:47] VITALS: BP 133/88
[2021-08-16] MEDS: ROPINIRole HCL 1 MG TABLET PO SCH (20:59)
[2021-08-16] MEDS: ZOLPIDEM TARTRATE 10 MG TABLET PO PRN (20:59)
[2021-08-16] MEDS: MELATONIN 5 MG TABLET PO SCH (20:59)
[2021-08-17] MEDS: ARIPiprazole 15 MG TABLET PO SCH (08:15)
[2021-08-17] MEDS: FLUoxetine HCL 20 MG CAPSULE PO SCH (08:15)
[2021-08-17] MEDS: MULTIVITAMINS WITH MINERALS, THERAPEUTIC TABLET PO SCH (08:15)
[2021-08-17] MEDS: OMEGA-3/DHA/EPA/FISH OIL 1,000 MG CAPSULE PO SCH (08:15)
[2021-08-17] MEDS: NALTREXONE HCL 50 MG TABLET PO SCH (08:15)
[2021-08-17] MEDS: PROPRANOLOL HCL 10 MG TABLET PO SCH ×4 (08:16→21:08)
[2021-08-17] MEDS: HydrOXYzine PAMOATE 50 MG CAPSULE PO PRN (08:27)
[2021-08-17] MEDS: NICOTINE POLACRILEX 2 MG LOZENGE PO PRN (08:27)
[2021-08-17] MEDS: OLANZapine 5 MG RAPDIS TABLET PO PRN ×2 (08:27→16:53)
[2021-08-17 09:51] VITALS: BP 136/90
[2021-08-17 16:00] VITALS: BP 134/84
[2021-08-17] MEDS: MELATONIN 5 MG TABLET PO SCH (21:08)
[2021-08-17] MEDS: ROPINIRole HCL 1 MG TABLET PO SCH (21:08)
[2021-08-17] MEDS: ZOLPIDEM TARTRATE 10 MG TABLET PO PRN (21:08)
[2021-08-17 23:47] LABS: COVID AG,FIA SOURCE NASAL SWAB
[2021-08-18] MEDS: FLUoxetine HCL 20 MG CAPSULE PO SCH (08:50)
[2021-08-18] MEDS: ARIPiprazole 15 MG TABLET PO SCH (08:51)
[2021-08-18] MEDS: MULTIVITAMINS WITH MINERALS, THERAPEUTIC TABLET PO SCH (08:51)
[2021-08-18] MEDS: OMEGA-3/DHA/EPA/FISH OIL 1,000 MG CAPSULE PO SCH (08:51)
[2021-08-18] MEDS: NALTREXONE HCL 50 MG TABLET PO SCH (08:51)
[2021-08-18] MEDS: PROPRANOLOL HCL 10 MG TABLET PO SCH ×2 (08:51→12:05)
[2021-08-18 09:26] VITALS: BP 158/105
[2021-08-18] MEDS ORDERED: ROPI1TAB46 PO (10:50)
[2021-08-18] MEDS ORDERED: PROP10TA72 PO (10:50)
[2021-08-18] MEDS ORDERED: MELA5TAB40 PO (10:50)
[2021-08-18] MEDS ORDERED: ARIP15TA27 PO (10:50)
[2021-08-18] MEDS ORDERED: OMEG-135 PO (10:50)
[2021-08-18] MEDS ORDERED: NALT50TA PO (10:50)
[2021-08-18] MEDS ORDERED: PROZ20 PO (10:50)
[2021-08-18] MEDS: NICOTINE POLACRILEX 2 MG LOZENGE PO PRN (11:12)
[2021-08-18] MEDS: OLANZapine 5 MG RAPDIS TABLET PO PRN (11:12)
[2021-08-18] MEDS: HydrOXYzine PAMOATE 50 MG CAPSULE PO PRN (11:12)
[2021-09-06] MEDS ORDERED: ARIPiprazole ER SUSPENSION 400 MG PRE-FILLED DUAL CHAMBER SYRINGE IM SCH (09:00)
== END 2021-08-18 12:15 | disposition home or self-care (01) | DRG 750 ==
LOC: EMS 07:34 → UNDOADMIN 16:26 → B2S 16:26 → B3A 08-02 11:37 → 3EI 08-02 13:41 → B3A 08-02 15:06 → 3EI 08-02 15:06 → B3A 08-02 16:26
PROVIDERS: ADMIT Psychiatry & Neurology Psychiatry; ATTEND Psychiatry & Neurology Psychiatry
DX: F25.1 Schizoaffective disorder, depressive type (principal); R45.851 Suicidal ideations; Z59.02 Unsheltered homelessness; Z91.19 Patient's noncompliance with other medical treatment and regimen; F11.90 Opioid use, unspecified, uncomplicated; Z20.822 Contact with and (suspected) exposure to COVID-19; G25.81 Restless legs syndrome; F17.210 Nicotine dependence, cigarettes, uncomplicated; Z55.9 Problems related to education and literacy, unspecified; Z59.9 Problem related to housing and economic circumstances, unspecified; Z63.9 Problem related to primary support group, unspecified; Z65.3 Problems related to other legal circumstances; Z79.899 Other long term (current) drug therapy
CPT/HCPCS: 80053; 80061; 83036; 84439; 84443; 85025; 86592; 87081; 87389; 87491; 87591; 99285; G0480; J0401; J3420; Q0162; Q9967

== ENCOUNTER 2021-10-14 14:13 | Inpatient (IN) | payer MEDICAID, OTHER ==
[~2021-10-14] VITALS: Ht 182.9 cm; Wt 101.2 kg
[~2021-10-14 14:13] MED LIST: ARIP15TA27 PO; MELA5TAB40 PO; NALT50TA PO; OMEG-108 PO; PROP10TA72 PO; PROZ20 PO; ROPI1TAB46 PO
[2021-10-14 15:42] LABS: BASOPHILS % (AUTO) 0.8 % (0.0-2.0); EOSINOPHILS % (AUTO) 0.9 % (1.0-6.0); HEMATOCRIT 44.5 % (41-53); HEMOGLOBIN 15.4 g/dL (13.5-17.5); LYMPHOCYTES # (AUTO) 1.7 K/uL (1.0-4.8); LYMPHOCYTES % (AUTO) 26.8 % (22.0-44.0); MEAN CORPUSCULAR HEMOGLOBIN 29.4 pg (26.0-34.0); MEAN CORPUSCULAR HGB CONC 34.5 G/dL (31.0-37.0); MEAN CORPUSCULAR VOLUME 85 fL (80-100); MONOCYTES # (AUTO) 0.5 K/uL (0.1-1.0); MONOCYTES % (AUTO) 8.9 % (2.0-9.0); NEUTROPHILS # (AUTO) 3.9 K/uL (1.8-7.7); NEUTROPHILS % (AUTO) 62.6 % (40.0-70.0); PLATELET COUNT (AUTO) 302 K/uL (150-450); RED BLOOD CELL COUNT(AUTO) 5.23 MIL/uL (4.50-5.90); RED CELL DISTRIBUTION WIDTH 15.2 % (11.5-14.5)
[2021-10-14] MEDS ORDERED: QUEtiapine FUMARATE 100 MG TABLET PO ONE (15:45)
[2021-10-14 15:50] LABS: ANION GAP 10 mmol/L (8-16); CALCIUM, TOTAL 8.8 mg/dL (8.8-10.5); CARBON DIOXIDE 27 mmol/L (22-29); CHLORIDE 103 mmol/L (98-107); CREATININE 0.96 mg/dL (0.60-1.30); GLOMERULAR FILTR. RATE CALC > 60 mL/min (>60); GLUCOSE,RANDOM 86 mg/dL (70-110); POTASSIUM 3.8 mmol/L (3.5-5.1); SODIUM SERUM 140 mmol/L (136-145); UREA NITROGEN, BLOOD 13 mg/dL (7-18)
[2021-10-14 15:52] LABS: COVID AG,FIA SOURCE NASAL SWAB
[2021-10-14 15:57] LABS: ALANINE AMINOTRANSFERASE 111 U/L (12-78); ALBUMIN 3.8 g/dL (3.4-5.0); ALKALINE PHOSPHATASE 72 U/L (46-116); ASPARTATE AMINOTRANSFERASE 70 U/L (15-37); BILIRUBIN,TOTAL 0.4 mg/dL (0.1-1.0); TOTAL PROTEIN, SERUM 7.5 g/dL (6.4-8.2)
[2021-10-14] MEDS ORDERED: PNEUMOCOCCAL VACCINE POLYVALENT 0.5 ML VIAL [PPSV23] IM. ONE (20:15)
[2021-10-14] MEDS ORDERED: INFLUENZA VIRUS VACCINE QVS 2021-22 (6MO+)/PF 60 MCG/0.5 ML SYRINGE IM. ONE (20:15)
[2021-10-14 20:18] VITALS: BP 113/81
[2021-10-15 00:19] VITALS: BP 130/80
[2021-10-15] MEDS ORDERED: ACETAMINOPHEN 325 MG TABLET PO PRN (08:00)
[2021-10-15] MEDS ORDERED: ONDANSETRON HCL 4 MG TABLET PO PRN (08:00)
[2021-10-15] MEDS ORDERED: CloNIDine HCL 0.1 MG TABLET PO PRN (08:00)
[2021-10-15] MEDS ORDERED: BENZOCAINE/MENTHOL LOZENGE PO PRN (08:00)
[2021-10-15] MEDS ORDERED: LOPERAMIDE HCL 2 MG CAPSULE PO PRN (08:00)
[2021-10-15] MEDS ORDERED: PETROLATUM,WHITE 28 GM JELLY TP PRN (08:00)
[2021-10-15] MEDS ORDERED: DOCUSATE SODIUM 100 MG CAPSULE PO PRN (08:00)
[2021-10-15] MEDS ORDERED: BACITRACIN 28 GM OINTMENT TP PRN (08:00)
[2021-10-15] MEDS ORDERED: MAGNESIUM HYDROXIDE SUSPENSION 30 ML UDCUP PO PRN (08:00)
[2021-10-15] MEDS ORDERED: ALBUTEROL SULFATE HFA 90 MCG/PUFF 8 GM INHALER IH PRN (08:00)
[2021-10-15] MEDS ORDERED: IBUPROFEN 600 MG TABLET PO PRN (08:00)
[2021-10-15] MEDS ORDERED: OMEPRAZOLE 20 MG CAPSULE PO PRN (08:00)
[2021-10-15 09:56] VITALS: BP 107/67
[2021-10-15] MEDS: OMEGA-3/DHA/EPA/FISH OIL 1,000 MG CAPSULE PO SCH (09:57)
[2021-10-15] MEDS: LORazepam 2 MG TABLET PO PRN (12:06)
[2021-10-15 16:22] VITALS: BP 119/84
[2021-10-16] MEDS: LORazepam 2 MG TABLET PO PRN ×3 (03:28→21:49)
[2021-10-16 03:45] VITALS: BP 140/74
[2021-10-16 08:42] VITALS: BP 118/77
[2021-10-16] MEDS: OMEGA-3/DHA/EPA/FISH OIL 1,000 MG CAPSULE PO SCH (08:54)
[2021-10-16 16:39] VITALS: BP 107/87
[2021-10-16] MEDS: ZOLPIDEM TARTRATE 10 MG TABLET PO PRN (20:43)
[2021-10-17 05:44] VITALS: BP 112/75
[2021-10-17 08:19] VITALS: BP 109/60
[2021-10-17] MEDS: OMEGA-3/DHA/EPA/FISH OIL 1,000 MG CAPSULE PO SCH (09:06)
[2021-10-17] MEDS: ARIPiprazole 15 MG TABLET PO SCH (09:06)
[2021-10-17] MEDS: LORazepam 2 MG TABLET PO PRN ×2 (11:34→19:17)
[2021-10-17] MEDS: HALOPERIDOL 5 MG TABLET PO PRN (15:48)
[2021-10-17 16:35] VITALS: BP 126/73
[2021-10-17] MEDS: ZOLPIDEM TARTRATE 10 MG TABLET PO PRN (20:47)
[2021-10-18 05:57] VITALS: BP 118/72
[2021-10-18 08:04] VITALS: BP 136/92
[2021-10-18] MEDS: OMEGA-3/DHA/EPA/FISH OIL 1,000 MG CAPSULE PO SCH (09:33)
[2021-10-18] MEDS: ARIPiprazole 15 MG TABLET PO SCH (09:33)
[2021-10-18] MEDS: LORazepam 2 MG TABLET PO PRN ×2 (11:57→18:19)
[2021-10-18] MEDS: NICOTINE 21 MG/24 HOUR PATCH TD SCH (12:55)
[2021-10-18 16:17] VITALS: BP 126/76
[2021-10-18] MEDS: ZOLPIDEM TARTRATE 10 MG TABLET PO PRN (20:41)
[2021-10-19 00:29] VITALS: BP 120/74
[2021-10-19 08:00] VITALS: BP 105/61
[2021-10-19] MEDS: ARIPiprazole 15 MG TABLET PO SCH (08:05)
[2021-10-19] MEDS: NICOTINE 21 MG/24 HOUR PATCH TD SCH (08:05)
[2021-10-19] MEDS: OMEGA-3/DHA/EPA/FISH OIL 1,000 MG CAPSULE PO SCH (08:05)
[2021-10-19] MEDS: LORazepam 2 MG TABLET PO PRN ×2 (10:50→18:12)
[2021-10-19 15:16] LABS: GLUCOMETER DEV NAME(LOC) POC.BV
[2021-10-19 16:22] VITALS: BP 135/83
[2021-10-19] MEDS: ZOLPIDEM TARTRATE 10 MG TABLET PO PRN (21:16)
[2021-10-20 01:26] VITALS: BP 124/77
[2021-10-20 08:18] VITALS: BP 119/70
[2021-10-20] MEDS: NICOTINE 21 MG/24 HOUR PATCH TD SCH (08:37)
[2021-10-20] MEDS: ARIPiprazole 15 MG TABLET PO SCH (08:37)
[2021-10-20] MEDS: FOLIC ACID 1 MG TABLET PO SCH (08:37)
[2021-10-20] MEDS: THIAMINE 100 MG TABLET PO SCH (08:37)
[2021-10-20] MEDS: OMEGA-3/DHA/EPA/FISH OIL 1,000 MG CAPSULE PO SCH (08:37)
[2021-10-20] MEDS: LORazepam 2 MG TABLET PO PRN ×2 (11:01→18:53)
[2021-10-20 16:46] VITALS: BP 118/68
[2021-10-20] MEDS: ZOLPIDEM TARTRATE 10 MG TABLET PO PRN (20:35)
[2021-10-21 01:19] VITALS: BP 120/79
[2021-10-21] MEDS: OMEGA-3/DHA/EPA/FISH OIL 1,000 MG CAPSULE PO SCH (08:33)
[2021-10-21] MEDS: THIAMINE 100 MG TABLET PO SCH (08:34)
[2021-10-21] MEDS: FOLIC ACID 1 MG TABLET PO SCH (08:34)
[2021-10-21] MEDS: NICOTINE 21 MG/24 HOUR PATCH TD SCH (08:34)
[2021-10-21] MEDS: ARIPiprazole 15 MG TABLET PO SCH (08:34)
[2021-10-21 08:42] VITALS: BP 99/56
[2021-10-21] MEDS: LORazepam 2 MG TABLET PO PRN ×2 (12:06→19:59)
[2021-10-21] MEDS: MAG HYDROX/AL HYDROX/SIMETH ES 30 ML SUSPENSION UDCUP PO PRN ×2 (15:00→21:04)
[2021-10-21 16:25] VITALS: BP 131/71
[2021-10-21] MEDS: ZOLPIDEM TARTRATE 10 MG TABLET PO PRN (22:22)
[2021-10-22 00:52] VITALS: BP 134/82
[2021-10-22] MEDS: MAG HYDROX/AL HYDROX/SIMETH ES 30 ML SUSPENSION UDCUP PO PRN ×3 (03:44→17:14)
[2021-10-22 08:35] VITALS: BP 109/71
[2021-10-22] MEDS: ARIPiprazole 15 MG TABLET PO SCH (08:39)
[2021-10-22] MEDS: NICOTINE 21 MG/24 HOUR PATCH TD SCH (08:39)
[2021-10-22] MEDS: OMEGA-3/DHA/EPA/FISH OIL 1,000 MG CAPSULE PO SCH (08:39)
[2021-10-22] MEDS: FOLIC ACID 1 MG TABLET PO SCH (08:39)
[2021-10-22] MEDS: THIAMINE 100 MG TABLET PO SCH (08:39)
[2021-10-22] MEDS: LORazepam 2 MG TABLET PO PRN ×2 (10:50→16:04)
[2021-10-22 16:20] VITALS: BP 129/71
[2021-10-22] MEDS: ACYCLOVIR 200 MG CAPSULE PO SCH (21:20)
[2021-10-22] MEDS: ZOLPIDEM TARTRATE 10 MG TABLET PO PRN (21:24)
[2021-10-23 06:57] VITALS: BP 128/83
[2021-10-23 08:45] VITALS: BP 99/68
[2021-10-23] MEDS: THIAMINE 100 MG TABLET PO SCH (08:57)
[2021-10-23] MEDS: NICOTINE 21 MG/24 HOUR PATCH TD SCH (08:57)
[2021-10-23] MEDS: ARIPiprazole 15 MG TABLET PO SCH (08:57)
[2021-10-23] MEDS: OMEGA-3/DHA/EPA/FISH OIL 1,000 MG CAPSULE PO SCH (08:57)
[2021-10-23] MEDS: ACYCLOVIR 200 MG CAPSULE PO SCH ×2 (08:57→16:17)
[2021-10-23] MEDS: FOLIC ACID 1 MG TABLET PO SCH (08:57)
[2021-10-23 10:59] VITALS: BP 121/90
[2021-10-23] MEDS: LORazepam 2 MG TABLET PO PRN ×2 (11:03→17:19)
[2021-10-23 16:44] VITALS: BP 117/80
[2021-10-23 17:16] VITALS: BP 128/82
[2021-10-23] MEDS: HALOPERIDOL 5 MG TABLET PO PRN (19:56)
[2021-10-23] MEDS: ZOLPIDEM TARTRATE 10 MG TABLET PO PRN (21:12)
[2021-10-24 01:10] VITALS: BP 122/78
[2021-10-24 08:35] VITALS: BP 118/67
[2021-10-24] MEDS: OMEGA-3/DHA/EPA/FISH OIL 1,000 MG CAPSULE PO SCH (09:32)
[2021-10-24] MEDS: ARIPiprazole 15 MG TABLET PO SCH (09:32)
[2021-10-24] MEDS: FOLIC ACID 1 MG TABLET PO SCH (09:32)
[2021-10-24] MEDS: THIAMINE 100 MG TABLET PO SCH (09:32)
[2021-10-24] MEDS: ACYCLOVIR 200 MG CAPSULE PO SCH ×2 (09:32→16:32)
[2021-10-24] MEDS: NICOTINE 21 MG/24 HOUR PATCH TD SCH (09:33)
[2021-10-24] MEDS: LORazepam 2 MG TABLET PO PRN ×3 (10:55→21:34)
[2021-10-24 16:21] VITALS: BP 123/89
[2021-10-24] MEDS: ZOLPIDEM TARTRATE 10 MG TABLET PO PRN (20:27)
[2021-10-24] MEDS: HALOPERIDOL 5 MG TABLET PO PRN (21:34)
[2021-10-25 01:07] VITALS: BP 119/77
[2021-10-25] MEDS: LORazepam 2 MG TABLET PO PRN ×2 (07:25→17:11)
[2021-10-25 08:10] VITALS: BP 122/90
[2021-10-25] MEDS: THIAMINE 100 MG TABLET PO SCH (08:42)
[2021-10-25] MEDS: OMEGA-3/DHA/EPA/FISH OIL 1,000 MG CAPSULE PO SCH (08:42)
[2021-10-25] MEDS: ARIPiprazole 15 MG TABLET PO SCH (08:42)
[2021-10-25] MEDS: FOLIC ACID 1 MG TABLET PO SCH (08:42)
[2021-10-25] MEDS: NICOTINE 21 MG/24 HOUR PATCH TD SCH (08:43)
[2021-10-25] MEDS: ACYCLOVIR 200 MG CAPSULE PO SCH ×2 (08:43→16:54)
[2021-10-25 16:24] VITALS: BP 118/68
[2021-10-25] MEDS: HALOPERIDOL 5 MG TABLET PO PRN (20:35)
[2021-10-26 00:15] VITALS: BP 120/76
[2021-10-26 07:41] LABS: GLUCOMETER DEV NAME(LOC) POC.BV
[2021-10-26] MEDS: FOLIC ACID 1 MG TABLET PO SCH (08:03)
[2021-10-26] MEDS: LORazepam 2 MG TABLET PO PRN ×3 (08:04→17:08)
[2021-10-26] MEDS: OMEGA-3/DHA/EPA/FISH OIL 1,000 MG CAPSULE PO SCH (08:04)
[2021-10-26] MEDS: ARIPiprazole 15 MG TABLET PO SCH (08:04)
[2021-10-26] MEDS: THIAMINE 100 MG TABLET PO SCH (08:04)
[2021-10-26] MEDS: NICOTINE 21 MG/24 HOUR PATCH TD SCH (08:04)
[2021-10-26 08:29] VITALS: BP 113/58
[2021-10-26] MEDS: ACYCLOVIR 200 MG CAPSULE PO SCH ×2 (08:42→16:20)
[2021-10-26 16:19] VITALS: BP 113/70
[2021-10-26] MEDS: ZOLPIDEM TARTRATE 10 MG TABLET PO PRN (20:01)
[2021-10-26] MEDS: HALOPERIDOL 5 MG TABLET PO PRN (20:01)
[2021-10-27 00:56] VITALS: BP 115/69
[2021-10-27 08:33] VITALS: BP 149/98
[2021-10-27] MEDS: OMEGA-3/DHA/EPA/FISH OIL 1,000 MG CAPSULE PO SCH (08:59)
[2021-10-27] MEDS: FOLIC ACID 1 MG TABLET PO SCH (08:59)
[2021-10-27] MEDS: THIAMINE 100 MG TABLET PO SCH (08:59)
[2021-10-27] MEDS: ACYCLOVIR 200 MG CAPSULE PO SCH (08:59)
[2021-10-27] MEDS: ARIPiprazole 15 MG TABLET PO SCH (08:59)
[2021-10-27] MEDS: NICOTINE 21 MG/24 HOUR PATCH TD SCH (09:00)
[2021-10-27] MEDS ORDERED: ARIP15TA27 PO (09:55)
[2021-10-27] MEDS: LORazepam 2 MG TABLET PO PRN (13:05)
[2021-10-27] MEDS ORDERED: ACYC200C24 PO (21:10)
== END 2021-10-27 15:00 | disposition home or self-care (01) | DRG 754 ==
LOC: EMS 15:03 → B2S 17:41
PROVIDERS: ADMIT Psychiatry & Neurology Psychiatry; ATTEND Psychiatry & Neurology Psychiatry
DX: F32.9 Major depressive disorder, single episode, unspecified (principal); R45.851 Suicidal ideations; F41.9 Anxiety disorder, unspecified; Z20.822 Contact with and (suspected) exposure to COVID-19; F17.210 Nicotine dependence, cigarettes, uncomplicated; F20.9 Schizophrenia, unspecified; F12.90 Cannabis use, unspecified, uncomplicated; G47.00 Insomnia, unspecified; I10 Essential (primary) hypertension; E78.5 Hyperlipidemia, unspecified; K59.00 Constipation, unspecified; Z72.89 Other problems related to lifestyle; Z71.41 Alcohol abuse counseling and surveillance of alcoholic
CPT/HCPCS: 80053; 80061; 85025; 99285; G0480

== ENCOUNTER 2021-11-21 11:50 | Inpatient (IN) | payer MEDICAID, OTHER ==
[~2021-11-21] VITALS: Ht 180.3 cm; Wt 103.8 kg
[~2021-11-21 11:50] MED LIST changes: +ACYC200C24 PO; -MELA5TAB40 PO; -NALT50TA PO; -OMEG-108 PO; -PROP10TA72 PO; -PROZ20 PO; -ROPI1TAB46 PO
[2021-11-21 17:51] LABS: BASOPHILS % (AUTO) 0.6 % (0.0-2.0); EOSINOPHILS % (AUTO) 1.8 % (1.0-6.0); HEMATOCRIT 53.5 % (41-53); HEMOGLOBIN 18.5 g/dL (13.5-17.5); LYMPHOCYTES # (AUTO) 2.1 K/uL (1.0-4.8); LYMPHOCYTES % (AUTO) 30.7 % (22.0-44.0); MEAN CORPUSCULAR HEMOGLOBIN 29.8 pg (26.0-34.0); MEAN CORPUSCULAR HGB CONC 34.5 G/dL (31.0-37.0); MEAN CORPUSCULAR VOLUME 86 fL (80-100); MONOCYTES # (AUTO) 0.5 K/uL (0.1-1.0); MONOCYTES % (AUTO) 6.7 % (2.0-9.0); NEUTROPHILS # (AUTO) 4.2 K/uL (1.8-7.7); NEUTROPHILS % (AUTO) 60.2 % (40.0-70.0); PLATELET COUNT (AUTO) 221 K/uL (150-450)
[2021-11-21 18:04] LABS: ANION GAP 10 mmol/L (8-16); CALCIUM, TOTAL 9.8 mg/dL (8.8-10.5); CARBON DIOXIDE 24 mmol/L (22-29); CHLORIDE 104 mmol/L (98-107); CREATININE 0.89 mg/dL (0.60-1.30); GLOMERULAR FILTR. RATE CALC > 60 mL/min (>60); GLUCOSE,RANDOM 89 mg/dL (70-110); POTASSIUM 3.9 mmol/L (3.5-5.1); SODIUM SERUM 138 mmol/L (136-145); UREA NITROGEN, BLOOD 9 mg/dL (7-18)
[2021-11-21 18:10] LABS: ALANINE AMINOTRANSFERASE 72 U/L (12-78); ALBUMIN 4.3 g/dL (3.4-5.0); ALKALINE PHOSPHATASE 89 U/L (46-116); ASPARTATE AMINOTRANSFERASE 45 U/L (15-37); BILIRUBIN,TOTAL 0.6 mg/dL (0.1-1.0); TOTAL PROTEIN, SERUM 8.7 g/dL (6.4-8.2)
[2021-11-21] MEDS ORDERED: LORazepam 1 MG TABLET PO ONE (20:30)
[2021-11-21 20:33] LABS: COVID AG,FIA SOURCE NASAL SWAB
[2021-11-21 20:41] LABS: AMPHET/METH SCREEN,URINE NEGATIVE (NEGATIVE); BARBITURATE SCREEN, URINE NEGATIVE (NEGATIVE); BENZODIAZEPINES SCREEN,URINE POSITIVE (NEGATIVE); CANNABINOID SCREEN,URINE POSITIVE (NEGATIVE); COCAINE SCREEN,URINE NEGATIVE (NEGATIVE); METHADONE SCREEN, URINE NEGATIVE (NEGATIVE); OPIATE SCREEN,URINE NEGATIVE (NEGATIVE); PHENCYCLIDINE SCREEN,URINE NEGATIVE (NEGATIVE)
[2021-11-21] MEDS: HALOPERIDOL 5 MG TABLET PO PRN (21:27)
[2021-11-22] MEDS: LORazepam 2 MG TABLET PO PRN ×3 (09:01→19:53)
[2021-11-22] MEDS: HALOPERIDOL 5 MG TABLET PO PRN ×2 (09:01→19:53)
[2021-11-22 16:30] VITALS: BP 154/96
[2021-11-22] MEDS ORDERED: PERMETHRIN 5% 60 GM CREAM TP ONE (17:15)
[2021-11-22 19:52] VITALS: BP 124/85
[2021-11-22] MEDS: NICOTINE POLACRILEX 2 MG LOZENGE PO PRN (20:39)
[2021-11-22] MEDS: ZOLPIDEM TARTRATE 10 MG TABLET PO PRN (20:57)
[2021-11-23] MEDS ORDERED: BACITRACIN 28 GM OINTMENT TP PRN (06:15)
[2021-11-23] MEDS ORDERED: IBUPROFEN 600 MG TABLET PO PRN (06:15)
[2021-11-23] MEDS ORDERED: PETROLATUM,WHITE 28 GM JELLY TP PRN (06:15)
[2021-11-23] MEDS ORDERED: DOCUSATE SODIUM 100 MG CAPSULE PO PRN (06:15)
[2021-11-23] MEDS ORDERED: ACETAMINOPHEN 325 MG TABLET PO PRN (06:15)
[2021-11-23] MEDS ORDERED: CloNIDine HCL 0.1 MG TABLET PO PRN (06:15)
[2021-11-23] MEDS ORDERED: MAGNESIUM HYDROXIDE SUSPENSION 30 ML UDCUP PO PRN (06:15)
[2021-11-23] MEDS ORDERED: BENZOCAINE/MENTHOL LOZENGE PO PRN (06:15)
[2021-11-23] MEDS ORDERED: LOPERAMIDE HCL 2 MG CAPSULE PO PRN (06:15)
[2021-11-23] MEDS ORDERED: OMEPRAZOLE 20 MG CAPSULE PO PRN (06:15)
[2021-11-23] MEDS ORDERED: ALBUTEROL SULFATE HFA 90 MCG/PUFF 8 GM INHALER IH PRN (06:15)
[2021-11-23] MEDS ORDERED: MAG HYDROX/AL HYDROX/SIMETH ES 30 ML SUSPENSION UDCUP PO PRN (06:15)
[2021-11-23] MEDS ORDERED: ONDANSETRON HCL 4 MG TABLET PO PRN (06:15)
[2021-11-23] MEDS: LORazepam 2 MG TABLET PO PRN ×3 (08:03→17:25)
[2021-11-23] MEDS: HALOPERIDOL 5 MG TABLET PO PRN ×3 (08:03→17:25)
[2021-11-23] MEDS: NICOTINE POLACRILEX 2 MG LOZENGE PO PRN ×3 (08:08→17:37)
[2021-11-23 09:06] VITALS: BP 157/65
[2021-11-23] MEDS: ARIPiprazole 15 MG TABLET PO SCH (09:28)
[2021-11-23 17:15] VITALS: BP 128/86
[2021-11-24 00:16] VITALS: BP 121/82
[2021-11-24] MEDS: LORazepam 2 MG TABLET PO PRN ×5 (00:18→21:48)
[2021-11-24] MEDS: ZOLPIDEM TARTRATE 10 MG TABLET PO PRN ×2 (00:18→20:36)
[2021-11-24] MEDS: NICOTINE POLACRILEX 2 MG LOZENGE PO PRN ×5 (06:28→19:42)
[2021-11-24] MEDS: HALOPERIDOL 5 MG TABLET PO PRN ×3 (06:59→17:38)
[2021-11-24 09:10] VITALS: BP 115/61
[2021-11-24] MEDS: ARIPiprazole 15 MG TABLET PO SCH (10:55)
[2021-11-24 16:00] VITALS: BP 120/74
[2021-11-24 17:38] VITALS: BP 128/76
[2021-11-24 21:48] VITALS: BP 133/65
[2021-11-25 06:47] VITALS: BP 140/88
[2021-11-25] MEDS: LORazepam 2 MG TABLET PO PRN ×3 (06:51→17:50)
[2021-11-25] MEDS: NICOTINE POLACRILEX 2 MG LOZENGE PO PRN ×5 (06:51→17:50)
[2021-11-25] MEDS: HALOPERIDOL 5 MG TABLET PO PRN ×3 (06:51→17:50)
[2021-11-25 07:06] LABS: BAND NEUTROPHILS % (MANUAL) 0 % (0-5)
[2021-11-25 07:12] LABS: HEMATOCRIT 47.6 % (41-53); HEMOGLOBIN 16.2 g/dL (13.5-17.5); MEAN CORPUSCULAR HEMOGLOBIN 29.4 pg (26.0-34.0); MEAN CORPUSCULAR HGB CONC 34.1 G/dL (31.0-37.0); MEAN CORPUSCULAR VOLUME 86 fL (80-100); PLATELET COUNT (AUTO) 255 K/uL (150-450); RED BLOOD CELL COUNT(AUTO) 5.52 MIL/uL (4.50-5.90); RED CELL DISTRIBUTION WIDTH 13.8 % (11.5-14.5)
[2021-11-25 07:21] LABS: ANION GAP 8 mmol/L (8-16); CALCIUM, TOTAL 8.6 mg/dL (8.8-10.5); CARBON DIOXIDE 24 mmol/L (22-29); CHLORIDE 107 mmol/L (98-107); CREATININE 0.85 mg/dL (0.60-1.30); GLOMERULAR FILTR. RATE CALC > 60 mL/min (>60); GLUCOSE,RANDOM 97 mg/dL (70-110); PHOSPHORUS 4.1 mg/dL (2.5-4.9); SODIUM SERUM 139 mmol/L (136-145); UREA NITROGEN, BLOOD 13 mg/dL (7-18)
[2021-11-25 07:30] LABS: EOSINOPHILS % (MANUAL) 1 % (1-6); LYMPHOCYTES % (MANUAL) 25 % (22-44); MONOCYTES % (MANUAL) 7 % (2-9); SEGMENTED NEUTROPHILS % 67 % (40-70)
[2021-11-25 08:44] VITALS: BP 123/80
[2021-11-25] MEDS: ARIPiprazole 15 MG TABLET PO SCH (08:45)
[2021-11-25 16:11] VITALS: BP 141/79
[2021-11-25] MEDS: ZOLPIDEM TARTRATE 10 MG TABLET PO PRN (20:31)
[2021-11-26] MEDS: NICOTINE POLACRILEX 2 MG LOZENGE PO PRN ×5 (06:56→18:27)
[2021-11-26] MEDS: HALOPERIDOL 5 MG TABLET PO PRN ×3 (07:44→16:06)
[2021-11-26] MEDS: LORazepam 2 MG TABLET PO PRN ×4 (07:44→23:47)
[2021-11-26 08:24] VITALS: BP 127/87
[2021-11-26] MEDS: ARIPiprazole 15 MG TABLET PO SCH (08:46)
[2021-11-26 16:00] VITALS: BP 130/82
[2021-11-26] MEDS: ZOLPIDEM TARTRATE 10 MG TABLET PO PRN (23:47)
[2021-11-27 00:01] VITALS: BP 145/88
[2021-11-27] MEDS: NICOTINE POLACRILEX 2 MG LOZENGE PO PRN ×5 (07:06→18:41)
[2021-11-27 07:54] LABS: COVID AG,FIA SOURCE NASAL SWAB
[2021-11-27 08:00] VITALS: BP 131/94
[2021-11-27] MEDS: LORazepam 2 MG TABLET PO PRN ×3 (08:04→16:21)
[2021-11-27] MEDS: ARIPiprazole 15 MG TABLET PO SCH (08:04)
[2021-11-27] MEDS: HALOPERIDOL 5 MG TABLET PO PRN ×2 (08:04→12:05)
[2021-11-27 16:45] VITALS: BP 131/82
[2021-11-27] MEDS: ZOLPIDEM TARTRATE 10 MG TABLET PO PRN (20:08)
[2021-11-28] MEDS: NICOTINE POLACRILEX 2 MG LOZENGE PO PRN (07:46)
[2021-11-28] MEDS: LORazepam 2 MG TABLET PO PRN (07:46)
[2021-11-28 09:27] VITALS: BP 133/92
[2021-11-28] MEDS: ARIPiprazole 15 MG TABLET PO SCH (09:33)
[2021-11-29 12:16] LABS: HEPATITIS C AB (EIA) >11.0 s/co ratio (0.0-0.9); HEPATITIS C RNA,LOG 10 7.121; HEPATITIS C RNA,QNT 13200000 IU/mL; HEPATITIS C RT-PCR,QNT See Final Results IU/mL
[2021-11-29] MEDS ORDERED: ARIP15TA27 PO (13:54)
== END 2021-11-28 11:05 | disposition home or self-care (01) | DRG 750 ==
LOC: EMS 11:50 → 3EX 11-22 10:19 → 3EI 11-23 13:07
PROVIDERS: ADMIT Psychiatry & Neurology Psychiatry; ATTEND Psychiatry & Neurology Psychiatry
DX: F25.9 Schizoaffective disorder, unspecified (principal); R45.851 Suicidal ideations; K75.9 Inflammatory liver disease, unspecified; F29 Unspecified psychosis not due to a substance or known physiological condition; Z59.00 Homelessness unspecified; Z20.822 Contact with and (suspected) exposure to COVID-19; F41.9 Anxiety disorder, unspecified; F12.90 Cannabis use, unspecified, uncomplicated; F11.90 Opioid use, unspecified, uncomplicated; G47.00 Insomnia, unspecified; K59.00 Constipation, unspecified; F17.210 Nicotine dependence, cigarettes, uncomplicated; E78.5 Hyperlipidemia, unspecified; I10 Essential (primary) hypertension; Z71.51 Drug abuse counseling and surveillance of drug abuser; Z71.6 Tobacco abuse counseling
CPT/HCPCS: 80048; 80053; 80074; 83735; 84100; 85007; 85025; 85027; 87081; 87522; 99285; G0378; G0480; Q9967

== ENCOUNTER 2022-02-19 09:41 | Inpatient (IN) | payer MEDICAID, OTHER ==
[~2022-02-19] VITALS: Ht 182.9 cm; Wt 100.5 kg
[~2022-02-19 09:41] MED LIST changes: -ACYC200C24 PO
[2022-02-19] MEDS ORDERED: SERT-158 PO (10:11)
[2022-02-19 10:15] LABS: BASOPHILS % (AUTO) 0.6 % (0.0-2.0); EOSINOPHILS % (AUTO) 1.3 % (1.0-6.0); HEMATOCRIT 50.8 % (41-53); HEMOGLOBIN 17.3 g/dL (13.5-17.5); LYMPHOCYTES # (AUTO) 1.6 K/uL (1.0-4.8); LYMPHOCYTES % (AUTO) 21.8 % (22.0-44.0); MEAN CORPUSCULAR HEMOGLOBIN 29.3 pg (26.0-34.0); MEAN CORPUSCULAR HGB CONC 34.1 G/dL (31.0-37.0); MEAN CORPUSCULAR VOLUME 86 fL (80-100); MONOCYTES # (AUTO) 0.4 K/uL (0.1-1.0); MONOCYTES % (AUTO) 5.9 % (2.0-9.0); NEUTROPHILS % (AUTO) 70.4 % (40.0-70.0); PLATELET COUNT (AUTO) 266 K/uL (150-450); RED BLOOD CELL COUNT(AUTO) 5.92 MIL/uL (4.50-5.90)
[2022-02-19 10:24] LABS: ANION GAP 12 mmol/L (8-16); CALCIUM, TOTAL 9.6 mg/dL (8.8-10.5); CARBON DIOXIDE 23 mmol/L (22-29); CHLORIDE 105 mmol/L (98-107); CREATININE 0.88 mg/dL (0.60-1.30); GLUCOSE,RANDOM 118 mg/dL (70-110); SODIUM SERUM 140 mmol/L (136-145); UREA NITROGEN, BLOOD 16 mg/dL (7-18)
[2022-02-19 10:26] LABS: GLOMERULAR FILTR. RATE CALC > 60 mL/min (>60)
[2022-02-19 10:35] LABS: ALANINE AMINOTRANSFERASE 106 U/L (12-78); ALBUMIN 4.1 g/dL (3.4-5.0); ALKALINE PHOSPHATASE 77 U/L (46-116); ASPARTATE AMINOTRANSFERASE 44 U/L (15-37); BILIRUBIN,TOTAL 0.4 mg/dL (0.1-1.0); TOTAL PROTEIN, SERUM 7.9 g/dL (6.4-8.2)
[2022-02-19 11:18] LABS: COVID AG,FIA SOURCE NASOPHARYNGEAL
[2022-02-19] MEDS ORDERED: HALOPERIDOL 5 MG TABLET PO ONE (11:30)
[2022-02-19] MEDS ORDERED: GABA-1181 PO (12:05)
[2022-02-19] MEDS ORDERED: HYDR-4527 PO (12:05)
[2022-02-19] MEDS ORDERED: ACYC400T20 PO (12:05)
[2022-02-19 12:14] LABS: AMPHET/METH SCREEN,URINE NEGATIVE (NEGATIVE); BARBITURATE SCREEN, URINE NEGATIVE (NEGATIVE); BENZODIAZEPINES SCREEN,URINE POSITIVE (NEGATIVE); CANNABINOID SCREEN,URINE POSITIVE (NEGATIVE); COCAINE SCREEN,URINE NEGATIVE (NEGATIVE); METHADONE SCREEN, URINE NEGATIVE (NEGATIVE); OPIATE SCREEN,URINE NEGATIVE (NEGATIVE)
[2022-02-19 12:15] LABS: PHENCYCLIDINE SCREEN,URINE NEGATIVE (NEGATIVE)
[2022-02-19] MEDS ORDERED: LORazepam 1 MG TABLET PO ONE (12:15)
[2022-02-19] MEDS ORDERED: ZOLPIDEM TARTRATE 10 MG TABLET PO PRN (12:45)
[2022-02-19] MEDS: LORazepam 2 MG TABLET PO PRN (13:24)
[2022-02-20] MEDS: LORazepam 2 MG TABLET PO PRN ×4 (01:50→21:58)
[2022-02-20] MEDS: HALOPERIDOL 5 MG TABLET PO PRN (01:50)
[2022-02-20 02:41] VITALS: BP 136/94
[2022-02-20 08:00] VITALS: BP 99/61
[2022-02-20] MEDS ORDERED: MAGNESIUM HYDROXIDE SUSPENSION 30 ML UDCUP PO PRN (15:45)
[2022-02-20] MEDS ORDERED: CloNIDine HCL 0.1 MG TABLET PO PRN (15:45)
[2022-02-20] MEDS ORDERED: BACITRACIN 28 GM OINTMENT TP PRN (15:45)
[2022-02-20] MEDS ORDERED: OMEPRAZOLE 20 MG CAPSULE PO PRN (15:45)
[2022-02-20] MEDS ORDERED: IBUPROFEN 600 MG TABLET PO PRN (15:45)
[2022-02-20] MEDS ORDERED: PETROLATUM,WHITE 28 GM JELLY TP PRN (15:45)
[2022-02-20] MEDS ORDERED: DOCUSATE SODIUM 100 MG CAPSULE PO PRN (15:45)
[2022-02-20] MEDS ORDERED: ACETAMINOPHEN 325 MG TABLET PO PRN (15:45)
[2022-02-20] MEDS ORDERED: MAG HYDROX/AL HYDROX/SIMETH ES 30 ML SUSPENSION UDCUP PO PRN (15:45)
[2022-02-20] MEDS ORDERED: LOPERAMIDE HCL 2 MG CAPSULE PO PRN (15:45)
[2022-02-20] MEDS ORDERED: ONDANSETRON HCL 4 MG TABLET PO PRN (15:45)
[2022-02-20] MEDS ORDERED: BENZOCAINE/MENTHOL LOZENGE PO PRN (15:45)
[2022-02-20] MEDS ORDERED: ALBUTEROL SULFATE HFA 90 MCG/PUFF 8 GM INHALER IH PRN (15:45)
[2022-02-20 16:56] VITALS: BP 109/78
[2022-02-21] VITALS: BP 116/85
[2022-02-21] MEDS: HALOPERIDOL 5 MG TABLET PO PRN ×4 (07:59→16:15)
[2022-02-21] MEDS: LORazepam 2 MG TABLET PO PRN ×3 (07:59→16:15)
[2022-02-21] MEDS: NICOTINE POLACRILEX 2 MG LOZENGE PO PRN (18:26)
[2022-02-22] MEDS: HALOPERIDOL 5 MG TABLET PO PRN ×3 (06:56→16:20)
[2022-02-22] MEDS: NICOTINE POLACRILEX 2 MG LOZENGE PO PRN ×5 (06:56→18:21)
[2022-02-22] MEDS: LORazepam 2 MG TABLET PO PRN ×3 (06:56→16:20)
[2022-02-22 08:06] VITALS: BP 117/71
[2022-02-22] MEDS: SERTRALINE HCL 100 MG TABLET PO SCH (09:48)
[2022-02-22 16:52] VITALS: BP 120/86
[2022-02-22] MEDS ORDERED: OLANZapine 10 MG TABLET PO SCH (21:00)
[2022-02-23] MEDS: NICOTINE POLACRILEX 2 MG LOZENGE PO PRN ×3 (06:51→11:25)
[2022-02-23] MEDS: HALOPERIDOL 5 MG TABLET PO PRN ×2 (06:52→10:59)
[2022-02-23] MEDS: LORazepam 2 MG TABLET PO PRN ×2 (06:52→10:59)
[2022-02-23 07:06] LABS: HIV 1-2 SCREEN 4TH GEN W/RFLX Non Reactive (Non Reactive)
[2022-02-23] MEDS: SERTRALINE HCL 100 MG TABLET PO SCH (09:17)
[2022-02-23] MEDS ORDERED: SERT-440 PO (10:39)
[2022-02-23] MEDS ORDERED: OLAN10 PO (10:39)
== END 2022-02-23 12:25 | disposition home or self-care (01) | DRG 750 ==
LOC: EMS 09:41 → 3EI 02-20 00:45
PROVIDERS: ADMIT Psychiatry & Neurology Psychiatry; ATTEND Psychiatry & Neurology Psychiatry
DX: F25.1 Schizoaffective disorder, depressive type (principal); E78.5 Hyperlipidemia, unspecified; F41.9 Anxiety disorder, unspecified; Z20.822 Contact with and (suspected) exposure to COVID-19; I10 Essential (primary) hypertension; F12.90 Cannabis use, unspecified, uncomplicated; K59.00 Constipation, unspecified; G47.00 Insomnia, unspecified; Z72.0 Tobacco use; Z71.6 Tobacco abuse counseling
CPT/HCPCS: 80053; 85025; 86592; 87389; 99285; G0480; J3535; Q9967

== ENCOUNTER 2022-11-08 13:02 | Inpatient (IN) | payer MEDICAID, OTHER ==
[~2022-11-08] VITALS: Ht 182.9 cm; Wt 99.8 kg
[~2022-11-08 13:02] MED LIST changes: -ARIP15TA27 PO; +OLAN10 PO; +SERT-440 PO
[2022-11-08] MEDS ORDERED: SOFO1TAB PO (13:04)
[2022-11-08] MEDS ORDERED: TRAZ-252 PO (13:04)
[2022-11-08 14:07] LABS: ANION GAP 12 mmol/L (8-16); CALCIUM, TOTAL 9.1 mg/dL (8.8-10.5); CARBON DIOXIDE 23 mmol/L (22-29); CHLORIDE 103 mmol/L (98-107); CREATININE 1.18 mg/dL (0.60-1.30); GLOMERULAR FILTR. RATE CALC > 60 mL/min (>60); GLUCOSE,RANDOM 118 mg/dL (70-110); POTASSIUM 4.2 mmol/L (3.5-5.1); SODIUM SERUM 138 mmol/L (136-145); UREA NITROGEN, BLOOD 26 mg/dL (7-18)
[2022-11-08 14:10] LABS: BASOPHILS % (AUTO) 0.4 % (0.0-2.0); EOSINOPHILS % (AUTO) 0.9 % (1.0-6.0); HEMOGLOBIN 16.6 g/dL (13.5-17.5); LYMPHOCYTES # (AUTO) 1.6 K/uL (1.0-4.8); LYMPHOCYTES % (AUTO) 17.9 % (22.0-44.0); MEAN CORPUSCULAR HEMOGLOBIN 29.3 pg (26.0-34.0); MEAN CORPUSCULAR HGB CONC 33.1 G/dL (31.0-37.0); MEAN CORPUSCULAR VOLUME 89 fL (80-100); MONOCYTES # (AUTO) 0.6 K/uL (0.1-1.0); MONOCYTES % (AUTO) 7.3 % (2.0-9.0); NEUTROPHILS # (AUTO) 6.4 K/uL (1.8-7.7); NEUTROPHILS % (AUTO) 73.5 % (40.0-70.0); PLATELET COUNT (AUTO) 310 K/uL (150-450); RED BLOOD CELL COUNT(AUTO) 5.65 MIL/uL (4.50-5.90); RED CELL DISTRIBUTION WIDTH 13.1 % (11.5-14.5)
[2022-11-08 14:13] LABS: ALANINE AMINOTRANSFERASE 28 U/L (12-78); ALBUMIN 3.8 g/dL (3.4-5.0); ALKALINE PHOSPHATASE 68 U/L (46-116); ASPARTATE AMINOTRANSFERASE 23 U/L (15-37); BILIRUBIN,TOTAL 0.2 mg/dL (0.1-1.0); TOTAL PROTEIN, SERUM 7.8 g/dL (6.4-8.2)
[2022-11-08 15:19] LABS: COVID AG,FIA SOURCE NASOPHARYNGEAL
[2022-11-08] MEDS ORDERED: LORazepam 1 MG TABLET PO ONE (15:30)
[2022-11-08] MEDS ORDERED: ONDANSETRON HCL 4 MG TABLET PO ONE (15:30)
[2022-11-08] MEDS ORDERED: IBUPROFEN 600 MG TABLET PO ONE (16:30)
[2022-11-08 20:12] VITALS: BP 140/72
[2022-11-08] MEDS: LORazepam 2 MG TABLET PO PRN (20:12)
[2022-11-08] MEDS: ZOLPIDEM TARTRATE 10 MG TABLET PO PRN (20:12)
[2022-11-08] MEDS ORDERED: CloNIDine HCL 0.1 MG TABLET PO PRN (22:45)
[2022-11-08] MEDS ORDERED: ACETAMINOPHEN 325 MG TABLET PO PRN (22:45)
[2022-11-08] MEDS ORDERED: BACITRACIN 28 GM OINTMENT TP PRN (22:45)
[2022-11-08] MEDS ORDERED: MAGNESIUM HYDROXIDE SUSPENSION 30 ML UDCUP PO PRN (22:45)
[2022-11-08] MEDS ORDERED: OMEPRAZOLE 20 MG CAPSULE PO PRN (22:45)
[2022-11-08] MEDS ORDERED: PETROLATUM,WHITE 28 GM JELLY TP PRN (22:45)
[2022-11-08] MEDS ORDERED: DOCUSATE SODIUM 100 MG CAPSULE PO PRN (22:45)
[2022-11-08] MEDS ORDERED: ALBUTEROL SULFATE HFA 90 MCG/PUFF 8 GM INHALER IH PRN (22:45)
[2022-11-08] MEDS ORDERED: MAG HYDROX/AL HYDROX/SIMETH ES 30 ML SUSPENSION UDCUP PO PRN (22:45)
[2022-11-08] MEDS ORDERED: BENZOCAINE/MENTHOL LOZENGE PO PRN (22:45)
[2022-11-08] MEDS ORDERED: LOPERAMIDE HCL 2 MG CAPSULE PO PRN (22:45)
[2022-11-09] MEDS: LORazepam 2 MG TABLET PO PRN ×4 (04:49→23:52)
[2022-11-09 08:25] VITALS: BP 127/81
[2022-11-09] MEDS: ONDANSETRON HCL 4 MG TABLET PO PRN ×2 (09:32→18:08)
[2022-11-09] MEDS: HALOPERIDOL 5 MG TABLET PO PRN ×2 (09:32→23:52)
[2022-11-09] MEDS ORDERED: *NON-FORMULARY MED [ENTER DRUG, DOSE, FREQ IN COMMENTS] CLINICAL ONE (10:45)
[2022-11-09] MEDS: EPCLUSA PO SCH (16:47)
[2022-11-09] MEDS: ZOLPIDEM TARTRATE 10 MG TABLET PO PRN (21:27)
[2022-11-09 21:28] VITALS: BP 124/61
[2022-11-09] MEDS: IBUPROFEN 600 MG TABLET PO PRN (21:28)
[2022-11-10] MEDS: ONDANSETRON HCL 4 MG TABLET PO PRN ×2 (06:58→14:56)
[2022-11-10 08:08] VITALS: BP 127/59
[2022-11-10] MEDS: EPCLUSA PO SCH (08:12)
[2022-11-10] MEDS ORDERED: NICOTINE 21 MG/24 HOUR PATCH TD PRN (09:00)
[2022-11-10] MEDS: LORazepam 2 MG TABLET PO PRN ×2 (10:17→16:23)
[2022-11-10 16:23] VITALS: BP 139/88
[2022-11-10] MEDS: IBUPROFEN 600 MG TABLET PO PRN ×2 (16:23→23:49)
[2022-11-10] MEDS: OLANZapine 10 MG TABLET PO SCH (20:52)
[2022-11-10 23:45] VITALS: BP 128/89
[2022-11-11 08:06] VITALS: BP 120/80
[2022-11-11] MEDS: EPCLUSA PO SCH (09:07)
[2022-11-11] MEDS: LORazepam 2 MG TABLET PO PRN ×3 (09:24→20:50)
[2022-11-11] MEDS: IBUPROFEN 600 MG TABLET PO PRN (09:25)
[2022-11-11] MEDS: ONDANSETRON HCL 4 MG TABLET PO PRN (10:30)
[2022-11-11] MEDS ORDERED: GABA600T10 PO (12:03)
[2022-11-11] MEDS ORDERED: SERT-439 PO (12:03)
[2022-11-11 15:13] VITALS: BP 119/90
[2022-11-11 19:59] VITALS: BP 120/80
[2022-11-11] MEDS: OLANZapine 10 MG TABLET PO SCH (20:26)
[2022-11-11] MEDS: ZOLPIDEM TARTRATE 10 MG TABLET PO PRN (22:11)
[2022-11-12] MEDS: LORazepam 2 MG TABLET PO PRN ×2 (06:15→10:33)
[2022-11-12 08:31] VITALS: BP 120/78
[2022-11-12] MEDS: SERTRALINE HCL 100 MG TABLET PO SCH (09:18)
[2022-11-12] MEDS: IBUPROFEN 600 MG TABLET PO PRN (14:36)
[2022-11-12] MEDS: ONDANSETRON HCL 4 MG TABLET PO PRN (14:37)
[2022-11-12 20:12] VITALS: BP 132/94
[2022-11-12] MEDS: OLANZapine 10 MG TABLET PO SCH (20:46)
[2022-11-12] MEDS: ZOLPIDEM TARTRATE 10 MG TABLET PO PRN (20:46)
[2022-11-13] MEDS: LORazepam 2 MG TABLET PO PRN ×2 (03:55→14:54)
[2022-11-13 08:07] VITALS: BP 139/88
[2022-11-13] MEDS: SERTRALINE HCL 100 MG TABLET PO SCH (09:19)
[2022-11-13] MEDS: OLANZapine 10 MG TABLET PO SCH (20:05)
[2022-11-13 20:14] VITALS: BP 131/99
[2022-11-14] MEDS: LORazepam 2 MG TABLET PO PRN ×2 (01:07→08:26)
[2022-11-14 08:06] VITALS: BP 139/98
[2022-11-14] MEDS: SERTRALINE HCL 100 MG TABLET PO SCH (08:26)
[2022-11-14] MEDS ORDERED: SERT-440 PO (11:04)
[2022-11-14] MEDS ORDERED: OLAN10 PO (11:04)
== END 2022-11-14 13:26 | disposition home or self-care (01) | DRG 750 ==
LOC: EMS 13:04 → B3A 16:21 → B2S 11-09 18:59
PROVIDERS: ADMIT Psychiatry & Neurology Psychiatry; ATTEND Psychiatry & Neurology Psychiatry
DX: F25.1 Schizoaffective disorder, depressive type (principal); R45.851 Suicidal ideations; B18.2 Chronic viral hepatitis C; F12.90 Cannabis use, unspecified, uncomplicated; G47.00 Insomnia, unspecified; K59.00 Constipation, unspecified; F41.9 Anxiety disorder, unspecified; Z20.822 Contact with and (suspected) exposure to COVID-19; E78.5 Hyperlipidemia, unspecified; I10 Essential (primary) hypertension; Z87.891 Personal history of nicotine dependence; Z59.00 Homelessness unspecified
CPT/HCPCS: 80053; 85025; 99285; G0480; Q0162; Q9967

== ENCOUNTER 2022-11-30 18:55 | Inpatient (IN) | payer MEDICAID, OTHER ==
[~2022-11-30] VITALS: Ht 182.9 cm; Wt 102.1 kg
[2022-11-30] MEDS ORDERED: TRAZ-252 PO (19:00)
[2022-11-30 19:50] LABS: BASOPHILS % (AUTO) 0.2 % (0.0-2.0); EOSINOPHILS % (AUTO) 2.2 % (1.0-6.0); HEMATOCRIT 44.7 % (41-53); HEMOGLOBIN 15.2 g/dL (13.5-17.5); LYMPHOCYTES # (AUTO) 1.2 K/uL (1.0-4.8); LYMPHOCYTES % (AUTO) 19.6 % (22.0-44.0); MEAN CORPUSCULAR HEMOGLOBIN 29.4 pg (26.0-34.0); MEAN CORPUSCULAR VOLUME 87 fL (80-100); MONOCYTES # (AUTO) 0.4 K/uL (0.1-1.0); MONOCYTES % (AUTO) 6.2 % (2.0-9.0); NEUTROPHILS # (AUTO) 4.2 K/uL (1.8-7.7); NEUTROPHILS % (AUTO) 71.8 % (40.0-70.0); PLATELET COUNT (AUTO) 229 K/uL (150-450); RED BLOOD CELL COUNT(AUTO) 5.15 MIL/uL (4.50-5.90); RED CELL DISTRIBUTION WIDTH 13.2 % (11.5-14.5)
[2022-11-30 19:53] LABS: ANION GAP 13 mmol/L (8-16); CALCIUM, TOTAL 8.9 mg/dL (8.8-10.5); CARBON DIOXIDE 23 mmol/L (22-29); CHLORIDE 103 mmol/L (98-107); CREATININE 0.74 mg/dL (0.60-1.30); GLOMERULAR FILTR. RATE CALC > 60 mL/min (>60); GLUCOSE,RANDOM 114 mg/dL (70-110); POTASSIUM 3.4 mmol/L (3.5-5.1); SODIUM SERUM 139 mmol/L (136-145); UREA NITROGEN, BLOOD 9 mg/dL (7-18)
[2022-11-30 19:58] LABS: ALANINE AMINOTRANSFERASE 33 U/L (12-78); ALBUMIN 3.6 g/dL (3.4-5.0); ALKALINE PHOSPHATASE 61 U/L (46-116); ASPARTATE AMINOTRANSFERASE 28 U/L (15-37); BILIRUBIN,TOTAL 0.4 mg/dL (0.1-1.0); TOTAL PROTEIN, SERUM 7.1 g/dL (6.4-8.2)
[2022-11-30] MEDS ORDERED: ONDANSETRON HCL 4 MG TABLET PO ONE (20:15)
[2022-11-30] MEDS ORDERED: ACETAMINOPHEN 500 MG TABLET PO ONE (20:30)
[2022-11-30 20:42] LABS: COVID AG,FIA SOURCE NASOPHARYNGEAL
[2022-11-30 21:21] LABS: AMPHET/METH SCREEN,URINE NEGATIVE (NEGATIVE); BARBITURATE SCREEN, URINE NEGATIVE (NEGATIVE); BENZODIAZEPINES SCREEN,URINE POSITIVE (NEGATIVE); CANNABINOID SCREEN,URINE POSITIVE (NEGATIVE); COCAINE SCREEN,URINE NEGATIVE (NEGATIVE); METHADONE SCREEN, URINE NEGATIVE (NEGATIVE); OPIATE SCREEN,URINE POSITIVE (NEGATIVE); PHENCYCLIDINE SCREEN,URINE NEGATIVE (NEGATIVE)
[2022-11-30] MEDS: OLANZapine 5 MG TABLET PO PRN (22:28)
[2022-11-30] MEDS: LORazepam 2 MG TABLET PO PRN (22:28)
[2022-11-30] MEDS: ZOLPIDEM TARTRATE 10 MG TABLET PO PRN (23:45)
[2022-12-01 01:50] VITALS: BP 118/81
[2022-12-01] MEDS ORDERED: PNEUMOCOCCAL VACCINE POLYVALENT 0.5 ML VIAL [PPSV23] IM. ONE (03:30)
[2022-12-01] MEDS ORDERED: PETROLATUM,WHITE 28 GM JELLY TP PRN (05:30)
[2022-12-01] MEDS ORDERED: ALBUTEROL SULFATE HFA 90 MCG/PUFF 8 GM INHALER IH PRN (05:30)
[2022-12-01] MEDS ORDERED: BACITRACIN 28 GM OINTMENT TP PRN (05:30)
[2022-12-01] MEDS ORDERED: OMEPRAZOLE 20 MG CAPSULE PO PRN (05:30)
[2022-12-01] MEDS ORDERED: MAGNESIUM HYDROXIDE SUSPENSION 30 ML UDCUP PO PRN (05:30)
[2022-12-01] MEDS ORDERED: MAG HYDROX/AL HYDROX/SIMETH ES 30 ML SUSPENSION UDCUP PO PRN (05:30)
[2022-12-01] MEDS ORDERED: LOPERAMIDE HCL 2 MG CAPSULE PO PRN (05:30)
[2022-12-01] MEDS ORDERED: CloNIDine HCL 0.1 MG TABLET PO PRN (05:30)
[2022-12-01] MEDS ORDERED: ACETAMINOPHEN 325 MG TABLET PO PRN (05:30)
[2022-12-01] MEDS ORDERED: DOCUSATE SODIUM 100 MG CAPSULE PO PRN (05:30)
[2022-12-01 08:40] VITALS: BP 130/71
[2022-12-01] MEDS: LORazepam 2 MG TABLET PO PRN ×3 (10:35→20:21)
[2022-12-01] MEDS: ONDANSETRON HCL 4 MG TABLET PO PRN ×2 (10:35→20:21)
[2022-12-01] MEDS: IBUPROFEN 600 MG TABLET PO PRN ×2 (10:35→20:21)
[2022-12-01 20:00] VITALS: BP 143/86
[2022-12-01 21:07] VITALS: BP 143/80
[2022-12-01] MEDS: ZOLPIDEM TARTRATE 10 MG TABLET PO PRN (21:17)
[2022-12-02] MEDS: LORazepam 2 MG TABLET PO PRN ×3 (01:17→19:19)
[2022-12-02 04:50] VITALS: BP 135/68
[2022-12-02 08:32] VITALS: BP 126/71
[2022-12-02] MEDS: ONDANSETRON HCL 4 MG TABLET PO PRN (08:32)
[2022-12-02] MEDS ORDERED: LORazepam 2 MG/ML VIAL IM ONE (15:15)
[2022-12-02] MEDS ORDERED: HALOPERIDOL LACTATE 5 MG/ML VIAL IM ONE (15:15)
[2022-12-02] MEDS ORDERED: DiphenhydrAMINE HCL 50 MG/ML VIAL IM ONE (15:15)
[2022-12-02 20:07] VITALS: BP 130/76
[2022-12-02] MEDS: ZOLPIDEM TARTRATE 10 MG TABLET PO PRN (20:17)
[2022-12-02] MEDS: OLANZapine 10 MG TABLET PO SCH (20:35)
[2022-12-03] MEDS: OLANZapine 5 MG TABLET PO PRN (01:21)
[2022-12-03] MEDS: LORazepam 2 MG TABLET PO PRN ×4 (01:21→20:45)
[2022-12-03] MEDS: SERTRALINE HCL 100 MG TABLET PO SCH (08:06)
[2022-12-03 08:17] VITALS: BP 131/89
[2022-12-03] MEDS: IBUPROFEN 600 MG TABLET PO PRN (12:46)
[2022-12-03] MEDS: ONDANSETRON HCL 4 MG TABLET PO PRN (12:50)
[2022-12-03] MEDS: ZOLPIDEM TARTRATE 10 MG TABLET PO PRN (20:45)
[2022-12-03] MEDS: OLANZapine 10 MG TABLET PO SCH (21:00)
[2022-12-04 08:01] VITALS: BP 135/90
[2022-12-04] MEDS: LORazepam 2 MG TABLET PO PRN ×3 (08:21→21:26)
[2022-12-04] MEDS: SERTRALINE HCL 100 MG TABLET PO SCH (08:21)
[2022-12-04 20:17] VITALS: BP 147/82
[2022-12-04] MEDS: OLANZapine 10 MG TABLET PO SCH (21:00)
[2022-12-04] MEDS: ZOLPIDEM TARTRATE 10 MG TABLET PO PRN (22:05)
[2022-12-05] MEDS: LORazepam 2 MG TABLET PO PRN (07:04)
[2022-12-05 07:50] VITALS: BP 133/98
[2022-12-05] MEDS: SERTRALINE HCL 100 MG TABLET PO SCH (08:10)
[2022-12-05 10:05] VITALS: BP 133/98
== END 2022-12-05 14:15 | disposition home or self-care (01) | DRG 750 ==
LOC: EMS 18:57 → B2S 12-01 → B3A 12-02 16:05
PROVIDERS: ADMIT Psychiatry & Neurology Psychiatry; ATTEND Psychiatry & Neurology Psychiatry
DX: F25.1 Schizoaffective disorder, depressive type (principal); R45.851 Suicidal ideations; K73.8 Other chronic hepatitis, not elsewhere classified; F41.9 Anxiety disorder, unspecified; G47.00 Insomnia, unspecified; I10 Essential (primary) hypertension; E78.5 Hyperlipidemia, unspecified; Z20.822 Contact with and (suspected) exposure to COVID-19; F12.90 Cannabis use, unspecified, uncomplicated; F11.90 Opioid use, unspecified, uncomplicated; K59.00 Constipation, unspecified; Z79.899 Other long term (current) drug therapy; Z87.891 Personal history of nicotine dependence
CPT/HCPCS: 80053; 80307; 85025; 87081; 99285; G0480; J1200; J1630; J2060; Q0162

== ENCOUNTER 2024-05-08 17:29 | Inpatient (IN) | payer MEDICAID, OTHER ==
[~2024-05-08] VITALS: Ht 182.9 cm; Wt 95.8 kg
[2024-05-08 18:20] LABS: COVID AG,FIA SOURCE NASAL SWAB
[2024-05-08 18:33] LABS: ANION GAP 12 mmol/L (8-16); CARBON DIOXIDE 26 mmol/L (22-29); CHLORIDE 100 mmol/L (98-107); CREATININE 0.96 mg/dL (0.60-1.30); GLOMERULAR FILTR. RATE CALC > 60 mL/min (>60); GLUCOSE,RANDOM 83 mg/dL (70-110); POTASSIUM 3.2 mmol/L (3.5-5.1); SODIUM SERUM 138 mmol/L (136-145); UREA NITROGEN, BLOOD 6 mg/dL (7-18)
[2024-05-08 18:37] LABS: BASOPHILS % (AUTO) 0.4 % (0.0-2.0); EOSINOPHILS % (AUTO) 1.7 % (1.0-6.0); HEMATOCRIT 42.7 % (41-53); HEMOGLOBIN 14.2 g/dL (13.5-17.5); LYMPHOCYTES # (AUTO) 1.8 K/uL (1.0-4.8); LYMPHOCYTES % (AUTO) 27.7 % (22.0-44.0); MEAN CORPUSCULAR HEMOGLOBIN 28.7 pg (26.0-34.0); MEAN CORPUSCULAR HGB CONC 33.2 G/dL (31.0-37.0); MEAN CORPUSCULAR VOLUME 86 fL (80-100); MONOCYTES # (AUTO) 0.3 K/uL (0.1-1.0); MONOCYTES % (AUTO) 5.3 % (2.0-9.0); NEUTROPHILS # (AUTO) 4.2 K/uL (1.8-7.7); NEUTROPHILS % (AUTO) 64.9 % (40.0-70.0); PLATELET COUNT (AUTO) 253 K/uL (150-450); RED BLOOD CELL COUNT(AUTO) 4.94 MIL/uL (4.50-5.90); RED CELL DISTRIBUTION WIDTH 14.8 % (11.5-14.5); WHITE BLOOD COUNT (AUTO) 6.5 K/uL (4.5-11.0)
[2024-05-08 18:40] LABS: ALCOHOL, URINE DRUG SCREEN NEGATIVE (NEGATIVE); AMPHET/METH SCREEN,URINE NEGATIVE (NEGATIVE); BARBITURATE SCREEN, URINE NEGATIVE (NEGATIVE); BENZODIAZEPINES SCREEN,URINE POSITIVE (NEGATIVE); CANNABINOID SCREEN,URINE POSITIVE (NEGATIVE); COCAINE SCREEN,URINE NEGATIVE (NEGATIVE); METHADONE SCREEN, URINE POSITIVE (NEGATIVE); OPIATE SCREEN,URINE NEGATIVE (NEGATIVE); PHENCYCLIDINE SCREEN,URINE NEGATIVE (NEGATIVE)
[2024-05-08 18:48] LABS: SARS-COV2 (COVID) ANTIGEN,FIA Negative (Negative)
[2024-05-08 18:50] LABS: ALCOHOL, BLOOD (SERUM) 7 mg/dL (0-10)
[2024-05-08 18:55] LABS: TROPONIN I-HIGH SENSITIVITY Less Than 4 ng/L (<76)
[2024-05-08 18:56] LABS: B-TYPE NATRIURETIC PEPTIDE 11 pg/mL (0-100)
[2024-05-08] MEDS: POTASSIUM CHLORIDE 20 MEQ ER TABLET PO ONE (19:50)
[2024-05-09 01:20] VITALS: O2SAT 97
[2024-05-09] MEDS: LORazepam 1 MG TABLET PO ONE (02:10)
[2024-05-09 05:31] VITALS: BP 143/97; PULSE 80; RESP 17; TEMP 97.1; O2SAT 97
[2024-05-09 08:03] VITALS: BP 108/68; PULSE 83; RESP 18; TEMP 96.3; O2SAT 94
[2024-05-09] MEDS ORDERED: LOPERAMIDE HCL 2 MG CAPSULE PO PRN (08:15)
[2024-05-09] MEDS ORDERED: ACETAMINOPHEN 325 MG TABLET PO PRN (08:15)
[2024-05-09] MEDS ORDERED: PETROLATUM,WHITE 28 GM JELLY TP PRN (08:15)
[2024-05-09] MEDS ORDERED: NICOTINE 14 MG/24 HOUR PATCH TD PRN (08:15)
[2024-05-09] MEDS ORDERED: ALBUTEROL SULFATE HFA 90 MCG/PUFF 8 GM INHALER IH PRN (08:15)
[2024-05-09] MEDS ORDERED: MAG HYDROX/ALUMINUM HYD/SIMETH ES 30 ML SUSPENSION UDCUP PO PRN (08:15)
[2024-05-09] MEDS ORDERED: MAGNESIUM HYDROXIDE SUSPENSION 30 ML UDCUP PO PRN (08:15)
[2024-05-09] MEDS ORDERED: DOCUSATE SODIUM 100 MG CAPSULE PO PRN (08:15)
[2024-05-09] MEDS ORDERED: CloNIDine HCL 0.1 MG TABLET PO PRN (08:15)
[2024-05-09] MEDS ORDERED: GuaiFENesin/D-METHORPHAN [SUGAR-FREE] 200-20MG/10 ML SYRUP UDCUP PO PRN (08:15)
[2024-05-09] MEDS: GABAPENTIN 300 MG CAPSULE PO SCH (11:52)
[2024-05-09] MEDS: SERTRALINE HCL 100 MG TABLET PO SCH (11:52)
[2024-05-09] MEDS: METHADONE HCL 10 MG TABLET PO SCH (11:52)
[2024-05-09] MEDS: NICOTINE POLACRILEX 2 MG LOZENGE PO PRN (12:03)
[2024-05-09] MEDS: PNEUMOCOCCAL VACCINE POLYVALENT 0.5 ML SYRINGE [PPSV23] IM. ONE (12:45)
[2024-05-09] MEDS: INFLUENZA VIRUS VACCINE TVS (6MO+) 2024-25/PF 45 MCG/0.5 ML SYRINGE IM. ONE (12:45)
[2024-05-09] MEDS: OLANZapine 10 MG TABLET PO SCH (20:19)
[2024-05-09 20:20] VITALS: BP 118/75; PULSE 60; RESP 16; TEMP 97.5; O2SAT 96
[2024-05-10 08:14] VITALS: BP 109/61; PULSE 59; RESP 16; TEMP 97.2; O2SAT 97
[2024-05-10] MEDS: LORazepam 2 MG TABLET PO PRN (17:03)
[2024-05-10 20:12] VITALS: BP 103/63; PULSE 60; RESP 16; TEMP 97.1; O2SAT 97
[2024-05-11 08:05] VITALS: BP 110/71; PULSE 69; RESP 16; TEMP 97.7; O2SAT 97
[2024-05-11 08:51] LABS: HEMOGLOBIN A1C 5.4 % (3.8-5.6)
[2024-05-11 09:08] LABS: CHOL/HDL RATIO 3.6 (4.2-7.3); THYROID STIMULATING HORMONE 2.38 uIU/mL (0.36-3.74)
[2024-05-11 09:17] LABS: POTASSIUM 3.8 mmol/L (3.5-5.1)
[2024-05-11 20:33] VITALS: BP_SYST 107; BP_SYST 123; BP_DIAS 67; BP_DIAS 68; PULSE 61; PULSE 64; RESP 16; RESP 19; TEMP 98; TEMP 98.2; O2SAT 96; O2SAT 97
[2024-05-12 08:16] VITALS: BP 109/62; PULSE 72; RESP 18; TEMP 97.6; O2SAT 98
[2024-05-12 17:09] VITALS: BP 132/89
[2024-05-12 20:10] VITALS: BP 131/89; PULSE 83; RESP 18; TEMP 97; O2SAT 99
[2024-05-13] MEDS: ONDANSETRON 4 MG TABLET PO PRN (01:27)
[2024-05-13 08:57] VITALS: BP 105/60; PULSE 78; RESP 18; TEMP 97.7; O2SAT 97
[2024-05-13 20:16] VITALS: BP_SYST 113; BP_SYST 123; BP_DIAS 70; BP_DIAS 76; PULSE 71; PULSE 75; RESP 18; TEMP 98.2; TEMP 98.5; O2SAT 95; O2SAT 96
[2024-05-13] MEDS: IBUPROFEN 400 MG TABLET PO PRN (21:05)
[2024-05-14 09:13] VITALS: BP 122/65; PULSE 73; RESP 17; TEMP 97.8; O2SAT 98
[2024-05-14 18:06] VITALS: BP 117/98; RESP 18; O2SAT 98
[2024-05-14] MEDS: ZOLPIDEM TARTRATE 10 MG TABLET PO PRN (20:29)
[2024-05-14 20:33] VITALS: BP 101/68; PULSE 75; RESP 18; TEMP 98; O2SAT 95
[2024-05-15 08:40] VITALS: BP 110/64; PULSE 80; RESP 17; TEMP 98.2; O2SAT 96
[2024-05-15 16:05] VITALS: BP 122/83; RESP 17; O2SAT 96
[2024-05-15 19:30] VITALS: BP 122/83; PULSE 92; RESP 17; TEMP 97.8; O2SAT 92
[2024-05-15 22:00] VITALS: BP 122/83; PULSE 92; RESP 17; TEMP 97.8; O2SAT 92
[2024-05-16 06:20] VITALS: BP 117/61; PULSE 74; RESP 18
[2024-05-16 08:30] VITALS: BP 117/65; PULSE 59; RESP 18; TEMP 98.2; O2SAT 98
[2024-05-16 20:00] VITALS: BP 103/60; PULSE 67; RESP 17; TEMP 98; O2SAT 96
[2024-05-17 08:07] VITALS: BP 102/61; RESP 17; TEMP 97.7; O2SAT 98
[2024-05-17 20:17] VITALS: BP 113/75; PULSE 72; RESP 16; TEMP 97.8; O2SAT 96
[2024-05-18 09:05] VITALS: BP 116/70; PULSE 74; RESP 16; TEMP 98.9; O2SAT 97
[2024-05-18 20:22] VITALS: BP 127/70; PULSE 97; RESP 16; TEMP 97.8; O2SAT 99
[2024-05-19 08:11] VITALS: BP 131/76; PULSE 84; RESP 16; TEMP 98.5; O2SAT 97
[2024-05-19] MEDS: HydrOXYzine PAMOATE 50 MG CAPSULE PO PRN (17:17)
[2024-05-19] MEDS: HALOPERIDOL 5 MG TABLET PO PRN (17:38)
[2024-05-19 20:07] VITALS: PULSE 68; RESP 16; TEMP 97.5
[2024-05-20 12:29] VITALS: RESP 17
[2024-05-20 20:19] VITALS: PULSE 70; RESP 16; TEMP 98
[2024-05-21 08:12] VITALS: BP 105/65; PULSE 74; RESP 19; TEMP 97.8
[2024-05-21 20:00] VITALS: BP 126/77; PULSE 80; RESP 19; TEMP 97.2
[2024-05-22 09:39] VITALS: BP 139/85; PULSE 73; RESP 18; TEMP 96.4; O2SAT 96
[2024-05-22 20:00] VITALS: BP 148/87; PULSE 92; RESP 18; TEMP 98; O2SAT 97
[2024-05-23 08:24] VITALS: BP 142/81; PULSE 66; RESP 19; TEMP 97.7; O2SAT 95
[2024-05-23] MEDS ORDERED: GABA-1181 PO (11:16)
[2024-05-23] MEDS ORDERED: SERT-440 PO (11:16)
[2024-05-23] MEDS ORDERED: OLAN10TA74 PO (11:16)
== END 2024-05-23 13:13 | disposition home or self-care (01) | DRG 817 ==
LOC: EMS 17:29 → B2S 05-09 04:02
PROVIDERS: ADMIT Psychiatry & Neurology Psychiatry; ATTEND Psychiatry & Neurology Psychiatry
PROC: GZHZZZZ Group Psychotherapy (ICD-10-PCS; principal; 2024-05-10)
PROC: GZ52ZZZ Individual Psychotherapy, Cognitive (ICD-10-PCS; 2024-05-10)
DX: T40.412A Poisoning by fentanyl or fentanyl analogs, intentional self-harm, initial encounter (principal); F25.1 Schizoaffective disorder, depressive type; R45.851 Suicidal ideations; B19.20 Unspecified viral hepatitis C without hepatic coma; E78.5 Hyperlipidemia, unspecified; E87.6 Hypokalemia; I10 Essential (primary) hypertension; Z20.822 Contact with and (suspected) exposure to COVID-19; F19.10 Other psychoactive substance abuse, uncomplicated; F17.200 Nicotine dependence, unspecified, uncomplicated; F11.20 Opioid dependence, uncomplicated; F12.10 Cannabis abuse, uncomplicated; F41.9 Anxiety disorder, unspecified; Z79.899 Other long term (current) drug therapy; Z91.51 Personal history of suicidal behavior
CPT/HCPCS: 71045; 80048; 80061; 80307; 83036; 83880; 84132; 84443; 84484; 85025; 90686; 90732; 93005; 99285; G0480; Q0162; 36415-L1; 36415-TC; G0008

== ENCOUNTER → 2024-05-24 | Emergency (ER) | payer MEDICAID, OTHER ==
[~2024-05-24] VITALS: Ht 180.3 cm; Wt 95.5 kg
[~2024-05-24] MED LIST changes: +GABA-1181 PO; +OLAN10TA74 PO
[2024-05-24 15:57] VITALS: TEMP 98.6
[2024-05-24 19:08] LABS: COVID AG,FIA SOURCE NASAL SWAB
[2024-05-24 19:10] VITALS: BP 148/90; PULSE 82; RESP 18; O2SAT 99
[2024-05-24 19:27] LABS: SARS-COV2 (COVID) ANTIGEN,FIA Negative (Negative)
[2024-05-24 19:52] LABS: PH,URINE DRUG SCREEN 6.5 (5.0-8.0)
[2024-05-24 20:00] LABS: AMPHET/METH SCREEN,URINE NEGATIVE (NEGATIVE); BARBITURATE SCREEN, URINE NEGATIVE (NEGATIVE); BENZODIAZEPINES SCREEN,URINE NEGATIVE (NEGATIVE); CANNABINOID SCREEN,URINE POSITIVE (NEGATIVE); COCAINE SCREEN,URINE NEGATIVE (NEGATIVE); METHADONE SCREEN, URINE POSITIVE (NEGATIVE); OPIATE SCREEN,URINE POSITIVE (NEGATIVE); PHENCYCLIDINE SCREEN,URINE NEGATIVE (NEGATIVE)
[2024-05-24 20:01] LABS: ALCOHOL, URINE DRUG SCREEN NEGATIVE (NEGATIVE)
[2024-05-24] MEDS: OxyCODONE HCL/ACETAMINOPHEN 5-325 MG TABLET PO ONE (21:12)
== END | disposition home or self-care (01) ==
LOC: EMS 15:56
DX: F25.1 Schizoaffective disorder, depressive type (principal); F41.9 Anxiety disorder, unspecified; F11.10 Opioid abuse, uncomplicated; F17.200 Nicotine dependence, unspecified, uncomplicated; F12.90 Cannabis use, unspecified, uncomplicated; F17.210 Nicotine dependence, cigarettes, uncomplicated; Z59.00 Homelessness unspecified; Z79.891 Long term (current) use of opiate analgesic; Z20.822 Contact with and (suspected) exposure to COVID-19
CPT/HCPCS: 80307; 99283